=== PATIENT | female | born 1955 | race Caucasian/White ===

== ENCOUNTER → 2020-10-16 | Outpatient (CLI) | payer BC | END | disposition home or self-care (01) | LOC: LABWHC1 15:53 | PROVIDERS: ATTEND Internal Medicine | DX: Z20.828 Contact with and (suspected) exposure to other viral communicable diseases (principal) | CPT/HCPCS: U0003; C9803 ==

== ENCOUNTER 2021-07-30 21:22 | Observation (INO) | payer BC ==
[2021-07-30] MEDS ORDERED: HYDROmorphone 0.5 MG/0.5 ML SYRINGE IVP STA (22:36)
[2021-07-30] MEDS ORDERED: HYDROmorphone 0.5 MG/0.5 ML SYRINGE IM STA (22:36)
--- NOTE | 2021-07-30 22:57 | XR ---
EXAMINATION TYPE: XR foot limited RT DATE OF EXAM: 07/30/2021 COMPARISON: NONE HISTORY: Foot injury. Pain. TECHNIQUE: 2 views FINDINGS: Metatarsals are intact. The toes appear intact. There is small Achilles calcaneal spur. I s ee no fracture nor dislocation. There is minor spurring at the navicular cuneiform joints. IMPRESSION: Mild degenerative changes. No fracture.
--- NOTE | 2021-07-30 22:59 | XR ---
EXAMINATION TYPE: XR ankle limited RT DATE OF EXAM: 07/30/2021 COMPARISON: None HISTORY: Pain TECHNIQUE: 2 views FINDINGS: There is a trimalleolar fracture of the ankle. There is approximate 1.8 cm lateral displace ment of the talus. There is Achilles calcaneal spur. There is some soft tissue swelling around the an kle. IMPRESSION: Trimalleolar fracture of the ankle with comminuted fibula fragment and partial lateral di slocation of the talus.
--- NOTE | 2021-07-30 23:03 | ED ---
Lower Extremity Injury HPI - General Source: patient, EMS Mode of arrival: EMS Limitations: no limitations <Eber Tony - Last Filed: 07/31/21 01:13> <Prince Urbina - Last Filed: 08/04/21 23:25> - General Chief Complaint: Extremity Injury, Lower Stated Complaint: Fall, right ankle injury Time Seen by Provider: 07/30/21 21:49 - History of Present Illness Initial Comments: 66-year-old female presents to emergency Department with a chief complaint of right ankle injury. Patient reports her left leg slipped and caused her right leg to get stuck under her Neck. Patient reports she felt a sudden onset of p ain at the right ankle with a popping sensation. States she then contacted EMS who brought her to the ED for evaluation. Patient reports any pain with movement palpation or weightbearing. She reports diffuse swelling in the leg but denies any ecchymosis. Patient was given 100 g of fentanyl in the ambulance. Patient reports the pain is a lot more manageable now. She denies any paresthesias. (Eber Tony) - Related Data Home Medications Medication Instructions Recorded Confirmed ALPRAZolam [Xanax] 0.25 mg PO BID PRN 07/30/21 07/30/21 Aspirin 81 mg PO DAILY 07/30/21 07/30/21 Citalopram Hydrobromide [CeleXA] 20 mg PO DAILY 07/30/21 07/30/21 Metoprolol Tartrate [Lopressor] 25 mg PO BID 07/30/21 07/30/21 Previous Rx's Medication Instructions Recorded Baclofen 10 mg PO TID PRN #60 tab 07/31/21 Sennosides-Docusate Sodium 1 tab PO BID #60 tablet 07/31/21 [Senokot-S] Enoxaparin [Lovenox] 40 mg SQ DAILY #7 each 08/03/21 Famotidine [Pepcid] 20 mg PO DAILY tab 08/03/21 traMADol HCL [Ultram] 50 mg PO Q6HR PRN #28 tab 08/03/21 Allergies Allergy/AdvReac Type Severity Reaction Status Date / Time No Known Allergies Allergy Verified 07/30/21 22:13 Review of Systems ROS Other: All systems not noted in ROS Statement are negative. <Eber Tony - Last Filed: 07/31/21 01:13> ROS Other: All systems not noted in ROS Statement are negative. <Prince Urbina - Last Filed: 08/04/21 23:25> ROS Statement: Those systems with pertinent positive or pertinent negative responses have been documented in the HPI. Past Medical History Past Medical History: Chest Pain / Angina, Hyperlipidemia, Hypertension, Myocardial Infarction (CT) Additional Past Medical History / Comment(s): PSORIASIS, HEART MURMUR. Last Myocardial Infarction Date:: 06/21/14 History of Any Multi-Drug Resistant Organisms: None Reported Past Surgical History: Coronary Bypass/CABG, Heart Catheterization With Stent Past Anesthesia/Blood Transfusion Reactions: No Reported Reaction Additional Past Anesthesia/Blood Transfusion Reaction / Comment(s): PT ADOPTED-NO FAMILY HX KNOWN. , PT STATES SHE HAS NO HX OF ANESTHESIA. Date of Last Stent Placement:: 06/21/2014 Past Psychological History: No Psychological Hx Reported Smoking Status: Former smoker Past Alcohol Use History: None Reported Past Drug Use History: None Reported - Past Family History Mother Additional Family Medical History / Comment(s): PT ADOPTED- NO KNOWN FAMILY HX. <Eber Tony - Last Filed: 07/31/21 01:13> General Exam Limitations: no limitations General appearance: alert, in no apparent distress, obese Head exam: Present: atraumatic, normocephalic, normal inspection Eye exam: Present: normal appearance, PERRL, EOMI Pupils: Present: normal accommodation ENT exam: Present: normal exam, normal oropharynx, mucous membranes moist Neck exam: Present: normal inspection, full ROM. Absent: tenderness, lymphadenopathy Respiratory exam: Present: normal lung sounds bilaterally. Absent: respiratory distress, wheezes, rales, rhonchi, stridor Cardiovascular Exam: Present: regular rate, normal rhythm, normal heart sounds. Absent: systolic murmur Extremities exam: Present: tenderness (Tenderness along the bilateral malleoli. No knee tenderness.), normal capillary refill, joint swelling (Right ankle), other (Palpable DP and PT bilaterally. Sensation intact in the right foot). Absent: normal inspection (Swelling diffusely along the right ankle), full ROM (Limited range of motion due to pain), pedal edema, calf tenderness Back exam: Present: normal inspection, full ROM. Absent: tenderness, CVA tenderness (R), CVA tenderness (L) Neurological exam: Present: alert, oriented X3 Psychiatric exam: Present: normal affect, normal mood Skin exam: Present: warm, dry, intact, normal color <Eber Tony - Last Filed: 07/31/21 01:13> Course Vital Signs 07/30/21 07/30/21 07/31/21 21:39 23:39 00:29 Temperature 97.7 F Pulse Rate 78 78 73 Pulse Rate [ Pulse Oximetery ] Respiratory 16 16 18 Rate Blood Pressure 189/75 174/85 164/79 Blood Pressure [Left Arm] O2 Sat by Pulse 88 L 95 100 Oximetry 07/31/21 07/31/21 07/31/21 00:35 00:40 00:45 Temperature Pulse Rate 73 79 74 Pulse Rate [ Pulse Oximetery ] Respiratory 15 16 14 Rate Blood Pressure 170/82 178/62 165/90 Blood Pressure [Left Arm] O2 Sat by Pulse 100 97 99 Oximetry 07/31/21 07/31/21 07/31/21 00:52 00:57 01:03 Temperature Pulse Rate 74 75 70 Pulse Rate [ Pulse Oximetery ] Respiratory 18 18 16 Rate Blood Pressure 164/75 175/77 136/75 Blood Pressure [Left Arm] O2 Sat by Pulse 97 94 L 94 L Oximetry 07/31/21 07/31/21 07/31/21 03:00 06:00 07:00 Temperature 98.2 F Pulse Rate 74 68 Pulse Rate [ 64 Pulse Oximetery ] Respiratory 16 16 19 Rate Blood Pressure 136/86 124/56 Blood Pressure 133/71 [Left Arm] O2 Sat by Pulse 95 97 91 L Oximetry Procedures - Orthopedic Splinting/Casting Injury #1 Side: right Upper Extremity Immobilizer: posterior splint, Kelvin wrap, synthetic pre-padded splint Lower Extremity Injury Location: ankle <Eber Tony Last Filed: 07/31/21 01:13> - Orthopedic Fracture Reduction Fracture #1 Consent Obtained: written consent Side: right Fracture Reduction Location: tibia, fibula Analgesia: procedural sedation Technique: direct manipulation Post Reduction X-rays Demonstrate: anatomical reduction Post-Reduction Neuro Exam: intact Post-Reduction Vascular Exam: intact Splint Applied: Yes Patient Tolerated Procedure: well, no complications - Procedural Sedation Procedural Sedation Start Time: 00:29 Procedural Sedation Stop Time: 00:48 Indications: fracture/dislocation reduction ASA Class: II Mallampati Airway Score: 4 Preparation: monitor worker applied, pulse oximeter, capnometry used, supplemental O2 applied, IV secured IV Propofol Dose (mgs): 50 Complications: none Patient Tolerated Procedure: well, no complications <Prince Urbina - Last Filed: 08/04/21 23:25> Medical Decision Making <Eber Tony - Last Filed: 07/31/21 01:13> - Lab Data Result diagrams: 08/02/21 06:06 08/02/21 06:06 <Prince Urbina - Last Filed: 08/04/21 23:25> - Medical Decision Making 66-year-old female presents to emergency Department with a chief complaint of right ankle injury. On physical examination, she has tenderness and limited range of motion with swelling to the right ankle. She is neurovascularly intact. X-ray reveals Trimalleolar fracture with talotibial dislocation. Patient was given 100 g of fentanyl in the ambulance. She received an additional doses of Dilaudid in the emergency department. I spoke to Dr. Pascual who recommended reduction and posterior splint. He recommended admission with a consult internal medicine. The reduction was performed in conjunction with Dr. Cavanaugh. Post reduction x-rays reveal satisfactory reduction. Patient will be admitted for further medical management. (Eber Tony) I saw this patient in conjunction with the physician commissary assistant. I performed independent history and physical exam. Agree with case management. (Prince Urbina) Disposition Is patient prescribed a controlled substance at d/c from ED?: No Time of Disposition: 01:15 <Eber Tony - Last Filed: 07/31/21 01:13> <Prince Urbina - Last Filed: 08/04/21 23:25> Clinical Impression: Trimalleolar fracture of ankle, closed Disposition: ADMITTED IP TO THIS HOSP Condition: Fair
[2021-07-30] MEDS ORDERED: PROPOFOL 10 MG/ML 20 ML VIAL IV ONE (23:19)
[2021-07-31] MEDS ORDERED: HYDROmorphone 0.5 MG/0.5 ML SYRINGE IVP STA (00:50)
--- NOTE | 2021-07-31 01:01 | XR ---
EXAMINATION TYPE: XR ankle limited RT DATE OF EXAM: 07/31/2021 COMPARISON: Yesterday HISTORY: Post reduction TECHNIQUE: 2 views FINDINGS: There is trimalleolar fracture of the ankle. There is 1.5 x 0.7 cm chip fracture posterior malleolus. The talus is in fairly good position. There is soft tissue swelling. There is no significa nt displacement of the medial and lateral malleolus fragments. IMPRESSION: There is good anatomic reduction of the trimalleolar fracture of the right ankle compared to initial exam. No complicating process seen.
[2021-07-31] MEDS ORDERED: ONDANSETRON 4 MG/2 ML VIAL IVP PRN (01:11)
[2021-07-31] MEDS ORDERED: NALOXONE 0.4 MG/ML 1 ML VIAL IV PRN (01:11)
[2021-07-31] MEDS: HYDROmorphone 0.5 MG/0.5 ML SYRINGE IVP PRN ×6 (03:08→17:55)
[2021-07-31] MEDS: SODIUM CHLORIDE 0.9% 1,000 ML IV SCH ×2 (03:09→17:31)
[2021-07-31] MEDS: CITALOPRAM HYDROBROMIDE 20 MG TAB PO SCH (09:27)
[2021-07-31] MEDS: METOPROLOL TARTRATE 25 MG TAB PO SCH ×2 (09:27→20:25)
[2021-07-31] MEDS ORDERED: DIAZEPAM 5 MG/ML 2 ML INJ IVP STA (12:18)
[2021-07-31] MEDS: traMADol 50 MG TAB PO PRN ×2 (12:19→20:29)
[2021-07-31] MEDS: ENOXAPARIN 40 MG/0.4 ML SYRINGE SQ SCH (12:57)
[2021-07-31] MEDS ORDERED: traMADol 50 MG TAB PO SCH (13:00)
[2021-07-31 13:25] LABS: African American GFR (CKD) >90 (>60 ml/min/1.73 sqM); Anion Gap 4 mmol/L; Blood Urea Nitrogen 17 mg/dL (7-17); Calcium 8.9 mg/dL (8.4-10.2); Carbon Dioxide 27 mmol/L (22-30); Chloride 103 mmol/L (98-107); Glucose 123 mg/dL (74-99); Non-African American GFR(CKD) 78 (>60 ml/min/1.73 sqM); Potassium 4.3 mmol/L (3.5-5.1); Sodium 134 mmol/L (137-145)
[2021-07-31 13:32] LABS: Basophils % (A) 0 %; Eosinophils # (A) 0.1 k/uL (0-0.7); Eosinophils % (A) 1 %; HGB 13.2 gm/dL (11.4-16.0); Lymphocytes # (A) 1.3 k/uL (1.0-4.8); Lymphocytes % (A) 13 %; MCH 30.1 pg (25.0-35.0); MCHC 32.2 g/dL (31.0-37.0); MCV 93.4 fL (80.0-100.0); Mean Platelet Volume 7.3; Monocytes # (A) 0.4 k/uL (0-1.0); Monocytes % (A) 4 %; Neutrophils # (A) 8.1 k/uL (1.3-7.7); Neutrophils % (A) 81 %; Platelet Count 249 k/uL (150-450); RBC 4.39 m/uL (3.80-5.40)
--- NOTE | 2021-07-31 13:52 | P.HPOR ---
History of Present Illness H&P Date: 07/31/21 Chief Complaint: Right ankle fracture This is a 66-year-old female who fell in her home yesterday sustaining injury to her right ankle. She was seen in the emergency department and admitted to our service for pain management. She was found to have a trimalleolar fracture di slocation which was reduced in the emergency department. She was placed in a short leg splint. Past Medical History Past Medical History: Chest Pain / Angina, Hyperlipidemia, Hypertension, Myocardial Infarction (MD) Additional Past Medical History / Comment(s): PSORIASIS, HEART MURMUR. Last Myocardial Infarction Date:: 06/21/14 History of Any Multi-Drug Resistant Organisms: None Reported Past Surgical History: Coronary Bypass/CABG, Heart Catheterization With Stent Past Anesthesia/Blood Transfusion Reactions: No Reported Reaction Additional Past Anesthesia/Blood Transfusion Reaction / Comment(s): PT ADOPTED- NO FAMILY HX KNOWN. , PT STATES SHE HAS NO HX OF ANESTHESIA. Date of Last Stent Placement:: 06/21/2014 Past Psychological History: No Psychological Hx Reported Smoking Status: Former smoker Past Alcohol Use History: None Reported Past Drug Use History: None Reported - Past Family History Mother Additional Family Medical History / Comment(s): PT ADOPTED- NO KNOWN FAMILY HX. Medications and Allergies Home Medications Medication Instructions Recorded Confirmed Type Clopidogrel Bisulfate [Plavix] 75 mg PO DAILY #30 tab 06/25/14 07/30/21 Rx ALPRAZolam [Xanax] 0.25 mg PO BID PRN 07/30/21 07/30/21 History Aspirin 81 mg PO DAILY 07/30/21 07/30/21 History Citalopram Hydrobromide [CeleXA] 20 mg PO DAILY 07/30/21 07/30/21 History Metoprolol Tartrate [Lopressor] 25 mg PO BID 07/30/21 07/30/21 History Allergies Allergy/AdvReac Type Severity Reaction Status Date / Time No Known Allergies Allergy Verified 07/30/21 22:13 Physical Examination This is a pleasant 66-year-old female in no acute distress. She is alert and oriented 3. Her daughter is present at bedside. Exam of the right lower extremity reveals swelling to the ankle. Splint is removed. There are no open wounds or abrasions. She is having some Spasm at this time. Normal toe motion. Pedal pulse is +2/4. Neurovascular status to the lower extremity is intact. No other findings on orthopedic exam. Results X-rays reveal a trimalleolar fracture dislocation right ankle. Postreduction x-rays revealed satisfactory reduction. - Labs Labs: Abnormal Lab Results - Last 24 Hours (Table) 07/31/21 07/31/21 Range/Units 12:54 12:54 Neutrophils # 8.1 H (1.3-7.7) k/uL Sodium 134 L (137-145) mmol/L Glucose 123 H (74-99) mg/dL H & H 07/31/21 Range/Units 12:54 Hgb 13.2 (11.4-16.0) gm/dL Hct 41.0 (34.0-46.0) % Result Diagrams: 07/31/21 12:54 07/31/21 12:54 Assessment and Plan (1) Trimalleolar fracture of ankle, closed Current Visit: Yes Status: Acute Code(s): S82.853A - DISPLACED TRIMALLEOLAR FRACTURE OF UNSP LOWER LEG, INIT SNOMED Code(s): 5167826 Plan: The clinical and x-ray findings are discussed with the patient and her daughter. It is recommended she undergo open reduction showed fixation of the right ankle. It is discussed that with typically wait 7-10 days to allow swelling to resolve prior to taking the patient to surgery. She is placed in a well-padded bulky splint. I was unable to get her foot and ankle up to 90 but her position was improved. She may be discharged to home after physical therapy sees her. She is to be nonweightbearing right lower extremity. She is to follow-up in the office next week.
[2021-07-31] MEDS: BACLOFEN 10 MG TAB PO PRN (17:55)
--- NOTE | 2021-07-31 18:55 | P.CONS ---
History of Present Illness - Reason for Consult Consult date: 07/31/21 med management - History of Present Illness This is a pleasant 66-year-old female who presents to the after catching her foot underneath a dresser in her hallway which also resulted in a fall and trimalar fracture to the right. Replaced in consultation by orthopedic services for medication management. Patient does have a history of DC in 2013 with 2 stents, with subsequent open heart with repair to the mitral valve in 2013. Patient also has a history of hypertension, hyperlipidemia, psoriasis. She is a former smoker, there is no other history noted. Patient does continue on aspirin and Plavix. We are recommending that she hold Plavix at this time but can continue on baby aspirin. Vital signs remained stable, afebrile, heart rate sinus rhythm 64, blood pressure 130/71, 97% on room air. Patient's continue on her home dose of Celexa, Lopressor and is receiving hydration 0.75. Patient is currently pending evaluation from orthopedics. She is requesting an increase in pain management, tramadol has been ordered. We discussed a muscle relaxer, this will be discussed with orthopedics. Initial x-ray in the ER revealed a tri- malleolar fracture of the ankle with comminuted fibular fragment and partial lateral dislocation of the talus. This was reduced by the ER physician, and subsequent x-ray showed a good anatomic reduction of the trimalleolar fracture of the right ankle compared to initial exam. The patient was placed in a splint and admitted to the floor. Patient's chemistry panel is unremarkable, blood count within normal limits. Her sodium is 134 and glucose is 123. coronavirus in not detectable. Pt will be kept overnight for pain management. She will dc'd on lovenox daily for DVT prophylaxis, and will f/u with ortho outpt once swelling subsides. REVIEW OF SYSTEMS: CONSTITUTIONAL: No fever, no malaise, no fatigue. HEENT: No recent visual problems or hearing problems. Denied any sore throat. CARDIOVASCULAR: No chest pain, orthopnea, PND, no palpitations, no syncope. Reports increasing lower extremity edema PULMONARY: Denies Cough, Shortness of breath. GASTROINTESTINAL: No diarrhea, no nausea, no vomiting, no abdominal pain. NEUROLOGICAL: No headaches, no weakness, no numbness. HEMATOLOGICAL: Denies any bleeding or petechiae. GENITOURINARY: Denies any burning micturition, frequency, or urgency. MUSCULOSKELETAL/RHEUMATOLOGICAL: Reports 10/10 cramping and aching to her right calf and ankle unrelieved by pain meds, denies numbness/tingling ENDOCRINE: Denies any polyuria or polydipsia. The rest of the 14-point review of systems is negative. PHYSICAL EXAMINATION: GENERAL: The patient is alert and oriented x3, not in any acute distress. Well developed, well nourished. HEENT: Pupils are round and equally reacting to light. EOMI. No scleral icterus. No conjunctival pallor. Normocephalic, atraumatic. No pharyngeal erythema. No thyromegaly. CARDIOVASCULAR: S1 and S2 present. Patient has regular rate and rhythm, there are no murmurs. PULMONARY: Clear to auscultation, no wheezes, crackles, rhonchi noted. ABDOMEN: Soft, nontender, nondistended, normoactive bowel sounds. No palpable organomegaly. MUSCULOSKELETAL: No joint swelling or deformity. EXTREMITIES: No cyanosis, clubbing. +2 dorsalis pedis bilateral NEUROLOGICAL: Gross neurological examination did not reveal any focal deficits. SKIN: No rashes. Kelvin Wrap to RLE. Assessment and Plan Assessment Closed Trimalleolar fracture of the right ankle s/p reduction and splint hyponatremia due to hyperglycemia, repeat in the morning hyperglycemia, no history of diabetes mellitus, f/u outpatient Coronary artery disease s/p PCI in 2013, plavix o/h history of mitral valve repair, open heart in 2013 hypertension - cont on metoprolol obesity Full Code DVT prophylaxis - Lovenox GI prophylaxis - Pepcid Plan: Pt to be discharged home from orthopedics once cleared. Cont all current medications, plavix will remain on/hold. Repeat labs in the morning, continue with IV fluids. Pt will f/u outpatient next week with Dr Reed office. Cont pain management. We will follow along. Thank you kindly for this consultation. Past Medical History Past Medical History: Chest Pain / Angina, Hyperlipidemia, Hypertension, Myocardial Infarction (DC) Additional Past Medical History / Comment(s): PSORIASIS, HEART MURMUR. Last Myocardial Infarction Date:: 06/21/14 History of Any Multi-Drug Resistant Organisms: None Reported Past Surgical History: Coronary Bypass/CABG, Heart Catheterization With Stent Past Anesthesia/Blood Transfusion Reactions: No Reported Reaction Additional Past Anesthesia/Blood Transfusion Reaction / Comm: PT ADOPTED-NO FAMILY HX KNOWN. , PT STATES SHE HAS NO HX OF ANESTHESIA. Date of Last Stent Placement:: 06/21/2014 Past Psychological History: No Psychological Hx Reported Smoking Status: Former smoker Past Alcohol Use History: None Reported Past Drug Use History: None Reported - Past Family History Mother Additional Family Medical History / Comment(s): PT ADOPTED- NO KNOWN FAMILY HX. Medications and Allergies Home Medications Medication Instructions Recorded Confirmed Type Clopidogrel Bisulfate [Plavix] 75 mg PO DAILY #30 tab 06/25/14 07/30/21 Rx ALPRAZolam [Xanax] 0.25 mg PO BID PRN 07/30/21 07/30/21 History Aspirin 81 mg PO DAILY 07/30/21 07/30/21 History Citalopram Hydrobromide [CeleXA] 20 mg PO DAILY 07/30/21 07/30/21 History Metoprolol Tartrate [Lopressor] 25 mg PO BID 07/30/21 07/30/21 History Baclofen 10 mg PO TID PRN #60 tab 07/31/21 Rx HYDROcodone/APAP 7.5-325MG [[place] 1 - 2 tab PO Q6HR PRN #32 tab 07/31/21 Rx 7.5-325] Sennosides-Docusate Sodium 1 tab PO BID #60 tablet 07/31/21 Rx [Senokot-S] Allergies Allergy/AdvReac Type Severity Reaction Status Date / Time No Known Allergies Allergy Verified 07/30/21 22:13 Physical Exam Vitals: Vital Signs Temp Pulse Pulse Resp BP BP Pulse Ox 07/31/21 07:00 98.2 F 64 19 133/71 91 L 07/31/21 06:00 68 16 124/56 97 07/31/21 03:00 74 16 136/86 95 07/31/21 01:03 70 16 136/75 94 L 07/31/21 00:57 75 18 175/77 94 L 07/31/21 00:52 74 18 164/75 97 07/31/21 00:45 74 14 165/90 99 07/31/21 00:40 79 16 178/62 97 07/31/21 00:35 73 15 170/82 100 07/31/21 00:29 73 18 164/79 100 07/30/21 23:39 78 16 174/85 95 07/30/21 21:39 97.7 F 78 16 189/75 88 L Intake and Output 07/30/21 07/31/21 07/31/21 22:59 06:59 14:59 Other: Weight 108.862 kg 108.862 kg Results CBC & Chem 7: 07/31/21 12:54 07/31/21 12:54
[2021-08-01] MEDS: HYDROmorphone 0.5 MG/0.5 ML SYRINGE IVP PRN ×3 (00:41→19:12)
[2021-08-01] MEDS: SODIUM CHLORIDE 0.9% 1,000 ML IV SCH ×2 (04:51→19:13)
[2021-08-01] MEDS: ASPIRIN 81 MG PO SCH (07:43)
[2021-08-01] MEDS: METOPROLOL TARTRATE 25 MG TAB PO SCH ×2 (07:43→21:01)
[2021-08-01] MEDS: CITALOPRAM HYDROBROMIDE 20 MG TAB PO SCH (07:43)
[2021-08-01] MEDS: FAMOTIDINE 20 MG TAB PO SCH (07:43)
[2021-08-01] MEDS: BACLOFEN 10 MG TAB PO PRN ×2 (07:43→14:32)
[2021-08-01] MEDS: ENOXAPARIN 40 MG/0.4 ML SYRINGE SQ SCH (07:44)
--- NOTE | 2021-08-01 12:59 | P.PN ---
Subjective Progress Note Date: 08/01/21 Principal diagnosis: Trimalleolar fracture dislocation right ankle. This is a 66-year-old female who fell in her home yesterday sustaining injury to her right ankle. She was seen in the emergency department and admitted to our service for pain management. She was found to have a trimalleolar fracture dislocation which was reduced in the emergency department. She was placed in a short leg splint. She had reapplication of a well-padded bulky splint on 07/31/2021. She cont inues to have pain and difficulty with ambulation. She has no new complaints or concerns today. Vital signs are stable. Objective - Vital Signs Vital signs: Vital Signs Temp 98.7 F 08/01/21 07:00 Pulse 65 08/01/21 07:00 Resp 16 08/01/21 07:00 BP 129/72 08/01/21 07:00 Pulse Ox 91 L 08/01/21 07:00 Intake & Output 07/31/21 08/01/21 08/01/21 18:59 06:59 18:59 Intake Total 417 700 Output Total 800 Balance 417 -100 Intake: Oral 417 700 Output: Urine 800 Other: Voiding Method External Catheter # Voids 2 1 - Exam This is a pleasant 66-year-old female in no acute distress. She is alert and oriented 3. Exam of the right lower extremity reveals that her splint is clean, dry and intact. She has full toe motion without difficulty or pain. Neurovascular status to the lower extremity is intact. - Labs CBC & Chem 7: 07/31/21 12:54 07/31/21 12:54 Labs: Abnormal Lab Results - Last 24 Hours (Table) 07/31/21 07/31/21 Range/Units 12:54 12:54 Neutrophils # 8.1 H (1.3-7.7) k/uL Sodium 134 L (137-145) mmol/L Glucose 123 H (74-99) mg/dL Assessment and Plan (1) Trimalleolar fracture of ankle, closed Current Visit: Yes Status: Acute Code(s): S82.853A - DISPLACED TRIMALLEOLAR FRACTURE OF UNSP LOWER LEG, INIT SNOMED Code(s): 6615305 Plan: The clinical findings are discussed the patient. She may be discharged to home when better able to ambulate. We are just pain surgery within the next 7-10 days once swelling resolves a bit. Continue current care.
[2021-08-01] MEDS: traMADol 50 MG TAB PO PRN (14:32)
[2021-08-01 14:54] LABS: African American GFR (CKD) 78.3 (60.0-200.0); Anion Gap 12.5 mmol/L (4.00-12.00); BUN/Creat Ratio 22.22 Ratio (12.00-20.00); Calcium 8.3 mg/dL (8.7-10.3); Carbon Dioxide 21.5 mmol/L (21.6-31.8); Non-African American GFR(CKD) 67.6 (60.0-200.0); Potassium 4.4 mmol/L (3.5-5.5)
--- NOTE | 2021-08-01 20:52 | CONS ---
CONSULTATION DATE OF SERVICE: 08/01/2021. REASON FOR CONSULTATION: Advice regarding hypertension, hyperlipidemia, medication, requested by Orthopedic Surgery. HISTORY OF PRESENT ILLNESS: This 66-year-old woman with a past medical history of hypertension, hyperlipidemia, history of myocardial infarction, psoriasis, history of heart murmur, history of CAD and stent, being followed by Dr. Prado in the outpatient setting, apparently fell at home, tripping and sliding. The patient had a trimalleolar fracture and dislocation of the right ankle. There is no history of any fever, rigors or chills. No history of headache, loss of consciousness, seizures. Orthopedics has seen the patient and recommended pain management and surgery within the next 7 to 10 days. PAST MEDICAL HISTORY: Hypertension, hyperlipidemia, history of myocardial infarction, history of psoriasis, heart murmur, CAD, CABG, stent. HOME MEDICATIONS: Celexa, aspirin, Xanax, Lopressor, Plavix, Senokot-S, [place], baclofen. ALLERGIES: NONE. FAMILY HISTORY: No history of heart disease or strokes in the family. SOCIAL HISTORY: Previous history of smoking. No current smoking or alcohol intake. REVIEW OF SYSTEMS: ENT: No diminished hearing. No diminished vision. CARDIOVASCULAR SYSTEM: No angina, palpitations. RESPIRATORY SYSTEM: No cough, hemoptysis. GI: No nausea, vomiting, diarrhea. : No dysuria. NERVOUS SYSTEM: No numbness, weakness. ALLERGY/IMMUNOLOGY: No asthma or hay fever. MUSCULOSKELETAL: As mentioned earlier. HEMATOLOGY/ONCOLOGY: No history of anemia. ENDOCRINE: No history of diabetes or hypothyroidism. CONSTITUTIONAL: As mentioned earlier. DERMATOLOGY: As mentioned earlier. RHEUMATOLOGY: Negative. PSYCHIATRY: As mentioned earlier. PHYSICAL EXAMINATION: Patient alert and oriented x3. Pulse is 65, blood pressure 129/72, respirations 16, temperature 98.7, pulse ox 91% on room air. HEENT: Conjunctivae normal. NECK: No jugular venous distention. CARDIOVASCULAR: S1, S2 muffled. RESPIRATION: Breath sounds diminished at the bases. No rhonchi. No crackles. ABDOMEN: Soft, obese, non-tender. No mass palpable. LEGS: Status post right ankle fracture. NERVOUS SYSTEM: Higher functions as mentioned earlier. Moves all 4 limbs. No focal motor or sensory deficit. LYMPHATICS: No lymph node palpable in neck, axillae or groin. SKIN: No ulcer, rash, bleeding. JOINTS: No active deforming arthropathy. LABS: CBC within normal limits. Sodium is 134 and 138. Otherwise glucose 116. ASSESSMENT: 1. Status post fall and right ankle trimalleolar fracture and dislocation. 2. Hyponatremia, mild. 3. History of hypertension. 4. Hyperlipidemia. 5. History of myocardial infarction. 6. History of psoriasis. 7. History of heart murmur. 8. History of coronary artery disease, coronary artery bypass grafting, stent. 9. Obesity with body mass index of 39.9. 10.FULL CODE. RECOMMENDATIONS AND DISCUSSION: In this 66-year-old woman who presented with multiple complex medical issues, at this time I recommend to continue current medications, resume the home medication, continue with the beta blockers. Otherwise, the patient is cleared for surgery. Patient is currently stable. Incentive spirometry. DVT prophylaxis. Further recommendations to follow. Recommend close followup with Dr. Prado after discharge. Plavix has been stopped currently. MMODL / IJN: [id number] /
[2021-08-02] MEDS: HYDROmorphone 0.5 MG/0.5 ML SYRINGE IVP PRN ×4 (02:23→21:26)
[2021-08-02] MEDS: SODIUM CHLORIDE 0.9% 1,000 ML IV SCH ×2 (06:12→20:03)
[2021-08-02] MEDS: ENOXAPARIN 40 MG/0.4 ML SYRINGE SQ SCH (08:20)
[2021-08-02] MEDS: FAMOTIDINE 20 MG TAB PO SCH (08:20)
[2021-08-02] MEDS: METOPROLOL TARTRATE 25 MG TAB PO SCH ×2 (08:20→20:00)
[2021-08-02] MEDS: ASPIRIN 81 MG PO SCH (08:20)
[2021-08-02] MEDS: CITALOPRAM HYDROBROMIDE 20 MG TAB PO SCH (08:20)
[2021-08-02 09:03] LABS: Basophils # (A) 0.05 X 10*3/uL (0.00-0.10); Basophils % (A) 0.5 %; Eosinophils # (A) 0.23 X 10*3/uL (0.04-0.35); Eosinophils % (A) 2.4 %; HCT 35.9 % (37.2-46.3); HGB 11.4 g/dL (12.0-15.0); Lymphocytes # (A) 1.93 X 10*3/uL (0.90-5.00); Lymphocytes % (A) 20.4 %; MCH 29.7 pg (27.0-32.0); MCHC 31.8 g/dL (32.0-37.0); MCV 93.5 fL (80.0-97.0); Mean Platelet Volume 9.8 fL (9.5-12.2); Monocytes # (A) 0.68 X 10*3/uL (0.20-1.00); Monocytes % (A) 7.2 %; Neutrophils # (A) 6.54 X 10*3/uL (1.80-7.70); Platelet Count 214 X 10*3/uL (140-440); RBC 3.84 X 10*6/uL (4.10-5.20); RDW 13.2 % (11.5-14.5); WBC 9.48 X 10*3/uL (4.50-10.00)
[2021-08-02 09:16] LABS: African American GFR (CKD) 78.3 (60.0-200.0); Anion Gap 1.8 mmol/L (4.00-12.00); BUN/Creat Ratio 16.67 Ratio (12.00-20.00); Calcium 8.6 mg/dL (8.7-10.3); Carbon Dioxide 29.2 mmol/L (21.6-31.8); Non-African American GFR(CKD) 67.6 (60.0-200.0); Potassium 4.2 mmol/L (3.5-5.5)
--- NOTE | 2021-08-02 13:01 | P.PN ---
Subjective Progress Note Date: 08/02/21 Principal diagnosis: Trimalleolar fracture dislocation right ankle. This is a 66-year-old female who fell in her home yesterday sustaining injury to her right ankle. She was seen in the emergency department and admitted to our service for pain management. She was found to have a trimalleolar fracture dislocation which was reduced in the emergency department. She was placed in a short leg splint. She had reapplication of a well-padded bulky splint on 07/31/2021. She cont inues to have pain and difficulty with ambulation. She has no new complaints or concerns today. Vital signs are stable. Objective - Vital Signs Vital signs: Vital Signs Temp 98.4 F 08/02/21 01:47 Pulse 98 08/02/21 07:00 Resp 17 08/02/21 07:00 BP 145/55 08/02/21 07:00 Pulse Ox 92 L 08/02/21 07:00 Intake & Output 08/01/21 08/02/21 08/02/21 18:59 06:59 18:59 Intake Total 450 900 Output Total 600 Balance 450 300 Intake: Intake, IV Titration 450 900 Amount Sodium Chloride 0.9% 1, 450 900 000 ml @ 75 mls/hr IV . [id number] [facility] Rx#:[id number] Output: Urine 600 Other: Voiding Method Bedside Commode Bedside Commode # Voids 2 - Exam This is a pleasant 66-year-old female in no acute distress. She is alert and oriented 3. Exam of the right lower extremity reveals that her splint is clean, dry and intact. She has full toe motion without difficulty or pain. Neurovascular status to the lower extremity is intact. - Labs CBC & Chem 7: 08/02/21 06:06 08/02/21 06:06 Labs: Abnormal Lab Results - Last 24 Hours (Table) 08/01/21 08/02/21 08/02/21 Range/Units 06:30 06:06 06:06 RBC 3.84 L (4.10-5.20) X 10*6/uL Hgb 11.4 L (12.0-15.0) g/dL Hct 35.9 L (37.2-46.3) % MCHC 31.8 L (32.0-37.0) g/dL Immature Gran # 0.05 H (0.00-0.04) X 10*3/uL Carbon Dioxide 21.5 L (21.6-31.8) mmol/L Anion Gap 12.50 H 1.80 L (4.00-12.00) mmol/L BUN/Creatinine Ratio 22.22 H (12.00-20.00) Ratio Glucose 116 H (70-110) mg/dL Calcium 8.3 L 8.6 L (8.7-10.3) mg/dL Assessment and Plan (1) Trimalleolar fracture of ankle, closed Current Visit: Yes Status: Acute Code(s): S82.853A - DISPLACED TRIMALLEOLAR FRACTURE OF UNSP LOWER LEG, INIT SNOMED Code(s): 1989564 Plan: The clinical findings are discussed the patient. She may be discharged to home when better able to ambulate. We are just pain surgery within the next 7-10 days once swelling resolves a bit. Continue current care.
[2021-08-02] MEDS: traMADol 50 MG TAB PO PRN ×2 (13:30→20:01)
--- NOTE | 2021-08-02 19:59 | PN ---
PROGRESS NOTE DATE OF SERVICE: 08/02/2021 This 66-year-old woman was admitted with ankle fracture, is being closely monitored at this time. The patient is on a cast, delayed surgery, surgery planned by Orthopedic surgery. Plavix is on hold. No chest pain. No palpitations. No fever. The community mental health social worker is recommended to evaluate the home situation, arrange things at home. No chest pain. No palpitations. No fever. PHYSICAL EXAMINATION: Alert and oriented x3. Pulse 65, blood pressure 134/70, respiration 18, temperature 98.7, pulse ox 98% on room air. HEENT: Conjunctivae normal. Oral mucosa moist. NECK: No jugular venous distention. No lymph node enlargement. CARDIOVASCULAR: S1, S2, muffled. No S3, no S4, RESPIRATORY: Diminished breath sounds at the bases. ABDOMEN: Soft, nontender. LEGS: Status post left ankle fracture. NERVOUS SYSTEM: No focal deficits. LABS: Hemoglobin 11.4. Creatinine is currently 0.9. COVID-19 is negative. ASSESSMENT: 1. Status post fall and right ankle trimalleolar fracture with dislocation. 2. Hyponatremia, mild. 3. History of hypertension. 4. History of hyperlipidemia. 5. History of myocardial infarction. 6. History of psoriasis. 7. History of heart murmur. 8. History of CAD, CABG, stent. 9. Obesity with body mass index of 39.9. 10.FULL CODE. RECOMMENDATIONS: Recommend to continue current management and symptomatic treatment. Otherwise, at this time continue to monitor pain management, DVT prophylaxis. Closely follow with Orthopedic Surgery. Further recommendations to follow. MMODL / IJN: [id number] /
[2021-08-03] MEDS: HYDROmorphone 0.5 MG/0.5 ML SYRINGE IVP PRN ×2 (00:22→04:56)
[2021-08-03] MEDS: traMADol 50 MG TAB PO PRN (01:58)
[2021-08-03 02:02] VITALS: PULSE 64
[2021-08-03 08:22] VITALS: BP 124/58; RESP 16; TEMP 98.2
[2021-08-03] MEDS: METOPROLOL TARTRATE 25 MG TAB PO SCH (08:23)
[2021-08-03] MEDS: ENOXAPARIN 40 MG/0.4 ML SYRINGE SQ SCH (08:23)
[2021-08-03] MEDS: FAMOTIDINE 20 MG TAB PO SCH (08:23)
[2021-08-03] MEDS: SODIUM CHLORIDE 0.9% 1,000 ML IV SCH (08:23)
[2021-08-03] MEDS: CITALOPRAM HYDROBROMIDE 20 MG TAB PO SCH (08:23)
[2021-08-03] MEDS: ASPIRIN 81 MG PO SCH (08:23)
--- NOTE | 2021-08-03 08:25 | P.DS ---
Providers Date of admission: 07/31/21 01:23 Expected date of discharge: 08/03/21 Attending physician: James Pascual Consults: 07/31/21 01:11 Consult Physician Routine Consulting Provider: Anthony Foreman Consult Reason/Comments: Trimalleolar fracture with talotibial dislocation Do you want consulting provider notified?: Yes Primary care physician: Lydia Prado - Discharge Diagnosis(es) (1) Trimalleolar fracture of ankle, closed Current Visit: Yes Status: Acute Hospital Course: This is a 66-year-old female who fell in her home sustaining injury to her right ankle. She was seen in the emergency department and admitted to our service for pain management. She was found to have a trimalleolar fracture dislocation which was reduced in the emergency department. She was placed in a short leg splint. The ankle was evaluated and she was found to have significant swelling. A new well-padded splint was applied. The patient remained inpatient for pain control and physical therapy. She is discharged to home on 08/03/2021. She is to follow-up tomorrow or for reevaluation and to schedule surgery. Patient Condition at Discharge: Fair Plan - Discharge Summary Discharge Rx Participant: No New Discharge Prescriptions: New traMADol HCL [Ultram] 50 mg PO Q6HR PRN #28 tab PRN Reason: Pain Baclofen 10 mg PO TID PRN #60 tab PRN Reason: Spasms Sennosides-Docusate Sodium [Senokot-S] 1 tab PO BID #60 tablet No Action Clopidogrel Bisulfate [Plavix] 75 mg PO DAILY #30 tab Aspirin 81 mg PO DAILY ALPRAZolam [Xanax] 0.25 mg PO BID PRN PRN Reason: Anxiety Metoprolol Tartrate [Lopressor] 25 mg PO BID Citalopram Hydrobromide [CeleXA] 20 mg PO DAILY Discharge Medication List Clopidogrel Bisulfate [Plavix] 75 mg PO DAILY #30 tab 06/25/14 [Rx] ALPRAZolam [Xanax] 0.25 mg PO BID PRN 07/30/21 [History] Aspirin 81 mg PO DAILY 07/30/21 [History] Citalopram Hydrobromide [CeleXA] 20 mg PO DAILY 07/30/21 [History] Metoprolol Tartrate [Lopressor] 25 mg PO BID 07/30/21 [History] Baclofen 10 mg PO TID PRN #60 tab 07/31/21 [Rx] Sennosides-Docusate Sodium [Senokot-S] 1 tab PO BID #60 tablet 07/31/21 [Rx] traMADol HCL [Ultram] 50 mg PO Q6HR PRN #28 tab 08/03/21 [Rx] Follow up Appointment(s)/Referral(s): James Pascual MD [STAFF PHYSICIAN] - 3 Days Lydia Prado MD [Primary Care Provider] - 1-2 days Activity/Diet/Wound Care/Special Instructions: Keep splint intact. Nonweightbearing right lower extremity with walker. Follow-up with Dr. Pascual on 08/04/2021. Discharge Disposition: HOME SELF-CARE
--- NOTE | 2021-08-03 09:16 | P.PN ---
Progress Note - Text Progress Note Date: 08/03/21 The patient will require a wheelchair at discharged to complete her ADLs. She has pain, weakness and is nonweightbearing to the right lower extremity. She will be able to propel herself in the wheelchair. She will also require a commode chair because she will be room confined. Planning discharge to home today.
--- NOTE | 2021-08-03 13:32 | P.PN ---
Subjective Progress Note Date: 08/03/21 This is a pleasant 66-year-old female who presents to the after catching her foot underneath a dresser in her hallway which also resulted in a fall and trimalar fracture to the right. Replaced in consultation by orthopedic services for medication management. Patient does have a history of MA in 2013 with 2 stents, with subsequent open heart with repair to the mitral valve in 2013. Patient also has a history of hypertension, hyperlipidemia, psoriasis. She is a former smoker, there is no other history noted. Patient does continue on aspirin and Plavix. We are recommending that she hold Plavix at this time but can continue on baby aspirin. Vital signs remained stable, afebrile, heart rate sinus rhythm 64, blood pressure 130/71, 97% on room air. Patient's continue on her home dose of Celexa, Lopressor and is receiving hydration 0.75. Patient is currently pending evaluation from orthopedics. She is requesting an increase in pain management, tramadol has been ordered. We discussed a muscle relaxer, this will be discussed with orthopedics. Initial x-ray in the ER revealed a tri-mall eolar fracture of the ankle with comminuted fibular fragment and partial lateral dislocation of the talus. This was reduced by the ER physician, and subsequent x-ray showed a good anatomic reduction of the trimalleolar fracture of the right ankle compared to initial exam. The patient was placed in a splint and admitted to the floor. Patient's chemistry panel is unremarkable, blood count within normal limits. Her sodium is 134 and glucose is 123. coronavirus in not detectable. Pt will be kept overnight for pain management. She will dc'd on lovenox daily for DVT prophylaxis, and will f/u with ortho outpt once swelling subsides. 08/03/2021 Patient is followed closely by medical service of his admission. Patient is stable for surgery from a medical standpoint. She is alert and oriented 3, denies any chest pain, chest pressure, cough or shortness of breath. She denies any headache, dizziness, lightheadedness. She denies any nausea vomiting or diarrhea, she is tolerating diet. Her focal neurological Exam is negative. She remains a surgical splint to her right, and plans to follow-up with Dr. Pascual in the office tomorrow to plan for surgical intervention. Patient will have a wheelchair for discharge. Patient is currently nonweightbearing. Vital signs are stable 98 which afebrile, heart rate 64 sinus rhythm, BP 124/58. Patient is receiving tramadol for pain management. ROS Constitutional: Denied any fatigue denied any fever. Cardio vascular: denied any chest pain, palpitations Gastrointestinal denied any nausea vomiting Pulmonary: Denied any shortness of breath cough Neurologic denied any new focal deficits All inpatient medications were reviewed and appropriate changes in these medications as dictated in the interval history and assessment and plan. PHYSICAL EXAMINATION: GENERAL: The patient is alert and oriented x3, not in any acute distress. Well developed, well nourished. HEENT: Pupils are round and equally reacting to light. EOMI. No scleral icterus. No conjunctival pallor. Normocephalic, atraumatic. No pharyngeal erythema. No thyromegaly. CARDIOVASCULAR: S1 and S2 present. No murmurs, rubs, or gallops. PULMONARY: Chest is clear to auscultation, no wheezing or crackles. ABDOMEN: Soft, nontender, nondistended, normoactive bowel sounds. No palpable organomegaly. MUSCULOSKELETAL: No joint swelling or deformity. EXTREMITIES: No cyanosis, clubbing, or pedal edema. NEUROLOGICAL: Gross neurological examination did not reveal any focal deficits. SKIN: No rashes. Assessment and Plan Assessment Closed Trimalleolar fracture of the right ankle s/p reduction and splint hyponatremia, repleted hyperglycemia, no history of diabetes mellitus, f/u outpatient, 96 today Coronary artery disease s/p PCI in 2013, plavix o/h history of mitral valve repair, open heart in 2013 hypertension - cont on metoprolol obesity Full Code DVT prophylaxis - Lovenox GI prophylaxis - Pepcid Plan Patient will be discharged today from orthopedic services. She'll follow-up in the office tomorrow, surgery is pending. Patient will discharge on baby aspirin, and we'll do daily Lovenox injections. Further recommendations from orthopedics to stop Lovenox one day prior to. Continue recommendations from orthopedics when to resume Plavix after surgery. Continue to follow-up with PCP. Thank you kindly for this consultation. Objective - Vital Signs Vital signs: Vital Signs Temp 98.2 F 08/03/21 08:20 Pulse 64 08/03/21 08:20 Resp 16 08/03/21 08:20 BP 124/58 09/27/21 08:20 Pulse Ox 94 L 08/03/21 02:00 Intake & Output 08/02/21 08/03/21 08/03/21 18:59 06:59 18:59 Intake Total 645 240 Balance 645 240 Intake: Intake, IV Titration 525 Amount Sodium Chloride 0.9% 1, 525 000 ml @ 75 mls/hr IV . [id number] [facility] Rx#:[id number] Oral 120 240 Other: Voiding Method Bedside Commode # Voids 1 1 1 - Labs CBC & Chem 7: 08/02/21 06:06 08/02/21 06:06
== END 2021-08-03 14:03 | disposition home or self-care (01) ==
LOC: EC 21:22 → 6NMEDSUR 07-31 01:23 → 6PED 08-02 13:41
PROVIDERS: ADMIT Orthopaedic Surgery; ATTEND Orthopaedic Surgery
DX: S82.851A Displaced trimalleolar fracture of right lower leg, initial encounter for closed fracture (principal); W19.XXXA Unspecified fall, initial encounter; Y92.009 Unspecified place in unspecified non-institutional (private) residence as the place of occurrence of the external cause; Z20.822 Contact with and (suspected) exposure to COVID-19; I10 Essential (primary) hypertension; E78.5 Hyperlipidemia, unspecified; E87.1 Hypo-osmolality and hyponatremia; I25.10 Atherosclerotic heart disease of native coronary artery without angina pectoris; R73.9 Hyperglycemia, unspecified; I25.2 Old myocardial infarction; E66.9 Obesity, unspecified; Z68.39 Body mass index [BMI] 39.0-39.9, adult; L40.9 Psoriasis, unspecified; R01.1 Cardiac murmur, unspecified; Z79.82 Long term (current) use of aspirin; Z79.899 Other long term (current) drug therapy; Z79.02 Long term (current) use of antithrombotics/antiplatelets; Z87.891 Personal history of nicotine dependence; Z95.1 Presence of aortocoronary bypass graft; Z95.5 Presence of coronary angioplasty implant and graft
CPT/HCPCS: 99285; 96374; 96361 ×4; 96372 ×4; 96376 ×5; 96375 ×2; 97530; 97161; 80048 ×3; 85025 ×2; 87635; 73600 ×2; 73620; G0378 ×4; J3360; J1650 ×4; J2704; J1170 ×5

== ENCOUNTER → 2021-08-06 | Outpatient (CLI) | payer BC ==
--- NOTE | 2021-08-07 07:13 | CT ---
EXAMINATION TYPE: CT ankle RT wo con DATE OF EXAM: 08/06/2021 COMPARISON: Right ankle x-ray July 30, 2021 and post reduction images July 31, 2021 HISTORY: Displaced trimalleolar fracture of right lower leg. Right ankle pain. CT DLP: 246.2 mGycm Automated exposure control for dose reduction was used. FINDINGS: There is redemonstration of acute comminuted displaced fracture through the distal fibular diaphysis or lateral malleolus with at least 2 small fracture fragments from punctate fracture fragments. The d ominant distal fracture fragment is posteriorly displaced roughly 9 mm and laterally displaced roughl y 4 mm with slight lateral angulation. Fracture is about the distal tibial metaphysis. Moderate to se richy soft tissue swelling and subcutaneous edema at this level is noted. Acute displaced fracture through the medial malleolus has roughly 3.2 x 1.9 cm fracture fragment and roughly 3 mm lateral displacement and slight distraction after reduction and splinting. Mild to moder ate subcutaneous edema soft tissue swelling begins at this level extending inferiorly. There is comminuted fracture deformity through the posterior malleolus with a few small fracture frag ments along the lateral aspect. There is abnormal widening of the distal tibial-fibular articulation with increased fluid. There is l ateral positioning of the talar dome relative to the distal tibia with abnormal lateral angulation. Remainder hindfoot and midfoot structures show mild to moderate narrowing and spurring particularly n ear the tarsal navicular and Lisfranc joint articulations. Some narrowing at the calcaneal cuboid art iculation is noted. No additional fracture is seen. Distal Achilles tendon appears intact. Normal sin us tarsi fat is identified. There is moderate to severe subcutaneous edema and soft tissue swelling along the volar surface great est laterally with more mild plantar surface subcutaneous edema present IMPRESSION: Displaced trimalleolar fractures with mortise disruption as detailed above.
== END | disposition home or self-care (01) ==
LOC: RADCTMAIN 16:05
PROVIDERS: ATTEND Orthopaedic Surgery
DX: S82.851D Displaced trimalleolar fracture of right lower leg, subsequent encounter for closed fracture with routine healing (principal)

== ENCOUNTER → 2021-10-30 | Outpatient (CLI) | payer BC ==
--- NOTE | 2021-10-30 11:28 | BD ---
EXAMINATION TYPE: Axial Bone Density DATE OF EXAM: 10/30/2021 COMPARISON: NONE CLINICAL HISTORY: Height: 64 IN Weight: 243 LBS FRAX RISK QUESTIONS: History of Fracture in Adulthood: RT FOOT AND HAND AGE 66 RISK FACTORS HISTORY OF: Active: LIMITED Diet low in dairy products/other sources of calcium: YES Postmenopausal woman: AGE 55 MEDICATIONS: Additional Medications: VIT D, BLOOD PRESSURE MEDS, LOW DOSE ASPIRIN, PLAVIX, CELEXA EXAM MEASUREMENTS: Bone mineral densitometry was performed using the [employer]. Bone mineral density as measured about the Lumbar spine is: ----- L1-L4(G/cm2): 1.253 T Score Values are as follows: ----- L2: 0.4 ----- L3: 1.0 ----- L4: 0.9 ----- L1-L4: 0.6 Bone mineral density BASELINE Bone mineral density about the R hip (g/cm2): 0.758 Bone mineral density about the L hip (g/cm2): 0.845 T Score values are as follows: -----R Neck: -2.0 -----L Neck: -1.4 -----R Total: -1.6 -----L Total: -0.4 Bone mineral density BASELINE IMPRESSION: Osteopenia (T Score between -2.5 and -1) in the bilateral hips. There is slightly increased risk of fracture and the patient may be considered for treatment. Re-Screen 2-5 years. NOTE: T-SCORE=SD OF THE YOUNG ADULT MEAN.
== END | disposition home or self-care (01) ==
LOC: RADBDWWP 10:46
PROVIDERS: ATTEND Internal Medicine
DX: N95.8 Other specified menopausal and perimenopausal disorders (principal); M85.80 Other specified disorders of bone density and structure, unspecified site
CPT/HCPCS: 77080

== ENCOUNTER 2023-03-20 17:09 | Emergency (ER) | payer MEDICARE ==
[2023-03-20 17:18] VITALS: RESP 18
[2023-03-20] MEDS ORDERED: KETOTIFEN 0.025% OPHTH DROPS 5 ML BTL BOTH EYES ONE (17:44)
[2023-03-20] MEDS ORDERED: POLYMYXIN B-TRIMETHOPRIM SULF (10,000-1) OPHTH DROPS 10 ML BTL BOTH EYES ONE (17:44)
--- NOTE | 2023-03-20 18:01 | ED ---
Eye Problem HPI - General Chief complaint: Eye Problems Stated complaint: Left eye swelling sent from urgent care Time Seen by Provider: 03/20/23 17:22 Source: patient, RN notes reviewed Mode of arrival: ambulatory Limitations: no limitations - History of Present Illness Initial comments: This is a 68-year-old female who presents to the emergency department for left eye redness and swelling. States that this started 2 days ago. Denies any associated pain, states that it is just uncomfortable because of the swelling. States that the swelling is covering some aspect of her visual field, but she is otherwise not have any problems seeing. She is having clear drainage from the eye and states that it is itchy. She was glasses but no contacts. She went to urgent care earlier today, who advised she come to the emergency department, as they could not measure her eye pressure. They did measure her visual acuity, which she states was normal. Denies any crusting of eyelashes or having the eyelashes matted shut. Also denies any injuries or foreign body sensations. While this is primarily in the left eye, she does feel like the right eye is a lso starting to get a little red Denies any fevers, chills, sore throat, cough, dyspnea, chest pain, palpitations, abdominal pain, nausea, vomiting, diarrhea, back pain, or headaches. MD chief complaint: eye redness Onset/Timin -: days(s) Onset Description: gradual Location: left eye - Related Data Home Medications Medication Instructions Recorded Confirmed ALPRAZolam [Xanax] 0.25 mg PO BID PRN 07/30/21 07/30/21 Aspirin 81 mg PO DAILY 07/30/21 07/30/21 Citalopram Hydrobromide [CeleXA] 20 mg PO DAILY 07/30/21 07/30/21 Metoprolol Tartrate [Lopressor] 25 mg PO BID 07/30/21 07/30/21 Previous Rx's Medication Instructions Recorded Baclofen 10 mg PO TID PRN #60 tab 07/31/21 Sennosides-Docusate Sodium 1 tab PO BID #60 tablet 07/31/21 [Senokot-S] Enoxaparin [Lovenox] 40 mg SQ DAILY #7 each 08/03/21 Famotidine [Pepcid] 20 mg PO DAILY tab 08/03/21 traMADol HCL [Ultram] 50 mg PO Q6HR PRN #28 tab 08/03/21 Allergies Allergy/AdvReac Type Severity Reaction Status Date / Time No Known Allergies Allergy Verified 03/20/23 17:18 Review of Systems ROS Statement: Those systems with pertinent positive or pertinent negative responses have been documented in the HPI. ROS Other: All systems not noted in ROS Statement are negative. Past Medical History Past Medical History: Chest Pain / Angina, Hyperlipidemia, Hypertension, Myocardial Infarction ([place]) Additional Past Medical History / Comment(s): PSORIASIS, HEART MURMUR. Last Myocardial Infarction Date:: 06/21/14 History of Any Multi-Drug Resistant Organisms: None Reported Past Surgical History: Coronary Bypass/CABG, Heart Catheterization With Stent Past Anesthesia/Blood Transfusion Reactions: No Reported Reaction Additional Past Anesthesia/Blood Transfusion Reaction / Comment(s): PT ADOPTED- NO FAMILY HX KNOWN. , PT STATES SHE HAS NO HX OF ANESTHESIA. Date of Last Stent Placement:: 06/21/2014 Past Psychological History: No Psychological Hx Reported Smoking Status: Former smoker Past Alcohol Use History: None Reported Past Drug Use History: None Reported - Past Family History Mother Additional Family Medical History / Comment(s): PT ADOPTED- NO KNOWN FAMILY HX. General Exam Limitations: no limitations General appearance: alert, in no apparent distress Head exam: Present: atraumatic, normocephalic, normal inspection Eye exam: Present: PERRL, EOMI, other (Conjunctival erythema and swelling, suggestive of chemosis. There is also swelling underneath the eye. There is no orbital or periorbital tenderness to palpation. No active drainage or crusting of eyelashes.) Pupils: Present: normal accommodation Expanded IOP (R) in mmH IOP (L) in mmH IOP measured with: Tonopen Course Vital Signs 03/20/23 03/20/23 17:13 19:04 Temperature 97.9 F 98.0 F Pulse Rate 80 82 Respiratory 18 18 Rate Blood Pressure 143/87 138/85 O2 Sat by Pulse 94 L 95 Oximetry Medical Decision Making - Medical Decision Making This is a 68-year-old female who presents to the emergency department for left eye redness and swelling. Was pt. sent in by a medical professional or institution? @ -Urgent care Did you speak to anyone other than the patient for history? @ -No Did you review nursing and triage notes? @ -Yes, and I agree, it is accurate with regards to the patient's symptoms. Were old charts reviewed? @ -No Differential Diagnosis? @ -Differential Eye Redness/Swelling: Conjunctivitis (allergic, viral, bacterial), chemosis, episcleritis, hyphema, subconjunctival hemorrhage, uveitis, glaucoma, this is not meant to be an all- inclusive list. What testing was considered but not performed? (CT, X-rays, U/S, labs)? Why? @ -None What meds were considered but not given? Why? @ -None Did you discuss the management of the patient with other professionals? @ -No Did you reconcile home meds? @ -No Was smoking cessation discussed for >3mins.? @ -No Was critical care preformed (if so, how long)? @ -No Were there social determinants of health that impacted care today? How? (Homelessness, low income, unemployed, alcoholism, drug addiction, transportation, low edu. Level, literacy, decrease access to med. care, snf, rehab)? @ -No Was there de-escalation of care discussed even if they declined? (Discuss DNR or withdrawal of care, Hospice)? @ -No What co-morbidities impacted this encounter? (DM, HTN, Smoking, COPD, CAD, Cancer, CVA, Hep., AIDS, mental health diagnosis, sleep apnea, morbid obesity)? @ -None Was patient admitted / discharged? @ -Discharged. Physical exam suggestive of a chemosis with the swelling and reported symptoms of itching and clear drainage. Patient reports having normal visual acuity testing at urgent care and declines the need to repeat this here. Intraocular pressure was within normal limits with 16 in the left eye and 15 in the right eye. Will treat the patient with both antihistamine and antibiotic eyedrops in the event there is a bacterial component. She was given Ketotifen and Polytrim eyedrops in the emergency department with dosing instructions reviewed. Given that the right eye is also starting to become a little red and irritated, advised she apply the drops to both eyes. Advised applying the Polytrim drops every 3 hours while awake for 7 days and the Ketotifen drops every 8 hours for 7 days as well. Information for ophthalmology follow-up provided. She is instructed to contact them in the morning for a follow-up appointment and reevaluation of symptoms. Undiagnosed new problem with uncertain prognosis? @ -None Drug Therapy requiring intensive monitoring for toxicity (Heparin, Nitro, In sulin, Cardizem)? @ -None Were any procedures done? @ -None Diagnosis/symptom? @ -Chemosis Acute, or Chronic, or Acute on Chronic? @ -Acute Uncomplicated (without systemic symptoms) or Complicated (systemic symptoms)? @ -Uncomplicated Side effects of treatment? @ -None Exacerbation, Progression, or Severe Exacerbation] @ -Not applicable Poses a threat to life or bodily function? @ -No Return precautions reviewed in depth, the patient is instructed to return to the emergency department with any new, worsening, or concerning symptoms. Patient verbalized understanding. This case was discussed in detail with the attending ED physician, Dr. Syed. Presentation, findings, and treatment plan discussed in detail as well. Disposition Clinical Impression: Chemosis of left conjunctiva Disposition: HOME SELF-CARE Instructions (If sedation given, give patient instructions): Conjunctivitis (ED) Additional Instructions: Return to the emergency department with any new, worsening, or concerning symptoms, especially if you have any vision loss, pain, or N/V. Use the Polytrim drops as one drop to both eyes every 3 hours while awake for 7 days. Use the Ketotifen eyedrops as one drop to each eye every 8 hours for 7 days. Contact ophthalmology as listed below first thing in the morning for a follow-up appointment and reevaluation of your symptoms. Make sure you let them know that you were seen in the emergency department and diagnosed with possible chemosis. Is patient prescribed a controlled substance at d/c from ED?: No Referrals: Lydia Prado MD [Primary Care Provider] - 1-2 days Brittanie Cortez MD [STAFF PHYSICIAN] - 1-2 days
[2023-03-20 19:05] VITALS: BP 138/85; PULSE 82; TEMP 98
== END 2023-03-20 19:04 | disposition home or self-care (01) ==
LOC: EC 17:09
DX: H11.422 Conjunctival edema, left eye (principal); I10 Essential (primary) hypertension; I25.2 Old myocardial infarction; Z79.82 Long term (current) use of aspirin; Z79.899 Other long term (current) drug therapy; Z95.1 Presence of aortocoronary bypass graft; Z87.891 Personal history of nicotine dependence
CPT/HCPCS: 99283

== ENCOUNTER 2023-03-29 19:06 | Observation (INO) | payer MEDICARE ==
--- NOTE | 2023-03-29 20:10 | XR ---
EXAMINATION TYPE: XR chest 2V DATE OF EXAM: 03/29/2023 COMPARISON: 06/22/2014 INDICATION: Pain with swelling TECHNIQUE: Frontal and lateral views of the chest are obtained. FINDINGS: The heart size is normal. The pulmonary vasculature is prominent. Some streak opacities in the periphery of the right mid lung. Correlate for atelectasis. Sternotomy w ires are in the midline.. IMPRESSION: 1. Clinical correlation for volume overload. 2. Streak atelectasis versus scarring right midlung.
[2023-03-29 20:21] LABS: Basophils # (A) 0.1 k/uL (0-0.2); Basophils % (A) 0 %; Eosinophils # (A) 0.3 k/uL (0-0.7); Eosinophils % (A) 3 %; HCT 46.2 % (34.0-46.0); HGB 15.2 gm/dL (11.4-16.0); Lymphocytes # (A) 2.4 k/uL (1.0-4.8); Lymphocytes % (A) 19 %; MCH 29.4 pg (25.0-35.0); MCHC 32.9 g/dL (31.0-37.0); MCV 89.4 fL (80.0-100.0); Mean Platelet Volume 7.6; Monocytes # (A) 0.4 k/uL (0-1.0); Monocytes % (A) 3 %; Neutrophils # (A) 9.2 k/uL (1.3-7.7); Neutrophils % (A) 74 %; Platelet Count 286 k/uL (150-450); RBC 5.17 m/uL (3.80-5.40); RDW 13.4 % (11.5-15.5); WBC 12.5 k/uL (3.8-10.6)
[2023-03-29 20:35] LABS: Partial Thromboplastin Time 26.4 sec (22.0-30.0); Prothrombin Time 10.4 sec (9.0-12.0)
[2023-03-29 20:36] LABS: ALT 25 U/L (4-34); AST 22 U/L (14-36); African American GFR (CKD) >90 (>60 ml/min/1.73 sqM); Albumin 4.1 g/dL (3.5-5.0); Alkaline Phosphatase 106 U/L (38-126); Anion Gap 8 mmol/L; Blood Urea Nitrogen 14 mg/dL (7-17); Calcium 9.3 mg/dL (8.4-10.2); Carbon Dioxide 26 mmol/L (22-30); Chloride 102 mmol/L (98-107); Non-African American GFR(CKD) >90 (>60 ml/min/1.73 sqM); Potassium 4.5 mmol/L (3.5-5.1); Sodium 136 mmol/L (137-145); Total Bilirubin 0.9 mg/dL (0.2-1.3); Total Protein 7.5 g/dL (6.3-8.2)
[2023-03-29] MEDS ORDERED: KETOROLAC 15 MG/ML 1 ML VIAL IVP STA (20:40)
[2023-03-29] MEDS ORDERED: ASPIRIN 81 MG PO STA (20:40)
[2023-03-29] MEDS ORDERED: LIDOCAINE 5% PATCH TOPICAL STA (20:41)
[2023-03-29 21:03] LABS: Glucose 139 mg/dL (74-99)
[2023-03-29] MEDS ORDERED: NALOXONE 0.4 MG/ML 1 ML VIAL IV PRN (22:10)
[2023-03-29] MEDS: HEPARIN SODIUM,PORCINE/PF 5,000 UNIT/0.5 ML SYRINGE SQ SCH (23:01)
--- NOTE | 2023-03-30 00:40 | ED ---
General Adult HPI - General Chief complaint: Neck Pain/Injury Stated complaint: REFER-TEST NEEDED Time Seen by Provider: 03/29/23 20:12 Source: patient, RN notes reviewed, old records reviewed Mode of arrival: ambulatory Limitations: no limitations - History of Present Illness Initial comments: Patient is a 68-year-old female with significant cardiac history including multiple cardiac stents, hypertension who presents emergency Department complaining of neck pain. States she woke up with the pain. It is worse with movement. Over the left side of her neck radiating down towards her left shoulder. Worse with movements of her neck as well as left shoulder. Minimal involvement of the left clavicle but no other chest pain. No other back pain. No shortness of breath, cough, difficulty breathing. No nausea or vomiting. No diaphoretic episodes. Patient presents over concern of possible muscle strain and should resume IP secondary to she slept if she woke up with it, however screening EKG in triage showed EKG changes and therefore she was immediately placed in a room for evaluation. She denies any chest pain. Denies any recent chest pain. 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 She states last EKG she received is probably at [facility]. - Related Data Home Medications Medication Instructions Recorded Confirmed Aspirin 81 mg PO DAILY 07/30/21 03/29/23 Citalopram Hydrobromide [CeleXA] 20 mg PO DAILY 07/30/21 03/29/23 Metoprolol Tartrate [Lopressor] 25 mg PO BID 07/30/21 03/29/23 Ascorbic Acid [Vitamin C] 1,000 mg PO DAILY 03/29/23 03/29/23 Calcium Carb/Mag Ox/Zinc Sulf 1 tab PO DAILY 03/29/23 03/29/23 [Sax-Njw-Adae 334-134-5 mg Tab] Cholecalciferol [Vitamin D3 (25 50 mcg PO DAILY 03/29/23 03/29/23 Mcg = 1000 Iu)] Clopidogrel [Plavix] 75 mg PO DAILY 03/29/23 03/29/23 Ergocalciferol (Vitamin D2) 1,250 mcg PO Q30D 03/29/23 03/29/23 [Drisdol (50,000 Iu)] Rosuvastatin Calcium 5 mg PO DAILY 03/29/23 03/29/23 Allergies Allergy/AdvReac Type Severity Reaction Status Date / Time No Known Allergies Allergy Verified 03/29/23 22:45 Review of Systems ROS Statement: Those systems with pertinent positive or pertinent negative responses have been documented in the HPI. Review of Systems: CONST: Denies fever EYES: Denies blurry vision ENT: Denies nasal congestion C/V: Denies Chest pain RESP: Denies shortness of breath GI: Denies abdominal pain : Denies dysuria SKIN: Denies rash. MSK: Endorses neck pain, shoulder pain NEURO: Denies headache ROS Other: All systems not noted in ROS Statement are negative. Past Medical History Past Medical History: Chest Pain / Angina, Hyperlipidemia, Hypertension, Myocardial Infarction ([place]) Additional Past Medical History / Comment(s): PSORIASIS, HEART MURMUR. Last Myocardial Infarction Date:: 06/21/14 History of Any Multi-Drug Resistant Organisms: None Reported Past Surgical History: Coronary Bypass/CABG, Heart Catheterization With Stent, Orthopedic Surgery Past Anesthesia/Blood Transfusion Reactions: No Reported Reaction Additional Past Anesthesia/Blood Transfusion Reaction / Comment(s): PT ADOPTED- NO FAMILY HX KNOWN. , PT STATES SHE HAS NO HX OF ANESTHESIA. Date of Last Stent Placement:: 06/21/2014 Past Psychological History: No Psychological Hx Reported Smoking Status: Former smoker Past Alcohol Use History: None Reported Past Drug Use History: None Reported - Past Family History Mother Additional Family Medical History / Comment(s): PT ADOPTED- NO KNOWN FAMILY HX. General Exam - General Exam Comments Initial Comments: General: Appears in no acute distress. HEAD: Normal with no signs of head trauma. EYES: PERRLA, EOMI, conjunctiva normal, no discharge. ENT: Hearing grossly intact, normal oropharynx. RESPIRATORY: Clear breath sounds bilaterally. No wheezes, rales, or rhonchi. C/V: Regular rate and rhythm. S1 and S2 auscultated, peripheral pulses 2+ and intact throughout ABD: Abd is soft, nontender, nondistended EXT: Tenderness palpation over the left trapezius muscle along the lateral neck as well as towards the left shoulder. Worse with movement of the neck. No midline cervical spine tenderness palpation. Tenderness worse with movement of these areas. No obvious chest pain on palpation. SKIN: No rashes or lesions observed on exposed skin. NEURO: Alert and oriented 4. Limitations: no limitations Course Vital Signs 03/29/23 03/29/23 03/29/23 19:15 20:59 23:06 Temperature 98.3 F Pulse Rate 83 72 68 Respiratory 16 14 15 Rate Blood Pressure 163/81 144/71 160/79 O2 Sat by Pulse 93 L 93 L 94 L Oximetry Medical Decision Making - Medical Decision Making Was pt. sent in by a medical professional or institution (, PA, CERTIFIED CAREGIVER, urgent care, hospital, or [facility]...) When possible be specific @ -No Did you speak to anyone other than the patient for history (EMS, parent, family, police, friend...)? What history was obtained from this source @ -No Did you review nursing and triage notes (agree or disagree)? Why? @ -I reviewed and agree with nursing and triage notes Were old charts reviewed (outside hosp., previous admission, EMS record, old EKG, old radiological studies, urgent care reports/EKG's, [facility] records)? Report findings @ -Old charts reviewed including EKGs from 2013. Patient also has old EKG reviewed from [facility] between obtained from 2014. Differential Diagnosis (chest pain, altered mental status, abdominal pain women, abdominal pain men, vaginal bleeding, weakness, fever, dyspnea, syncope, headache, dizziness, GI bleed, back pain, seizure, CVA, palpatations, mental health, musculoskeletal)? @ -Differential Musculoskeletal Muscular strain, contusion, ligament sprain, fracture, arthritis, septic arthritis, bursitis, cellulitis, muscle spasm, nerve compression, DVT, arterial occlusion, herpes zoster, electrolyte abnormality, tumor.... This is not meant to be in all inclusive listDifferential Chest Pain: Stable Angina, Unstable Angina, STEMI, NSTEMI Aortic Dissection, Pneumothorax, Musculoskeletal, Esophageal Spasm GERD, Cholecystitis, Pancreatitis, Zoster, this is not meant to be an all-inclusive list. EKG interpreted by me (3pts min.). @ -As above X-rays interpreted by me (1pt min.). @ -Chest x-ray shows no obvious acute cardiopulmonary process. Radiology concern for mild pulmonary vascular congestion however BNP is within acceptable limits for her age. CT interpreted by me (1pt min.). @ -None done U/S interpreted by me (1pt. min.). @ -None done What testing was considered but not performed or refused? (CT, X-rays, U/S, labs)? Why? @ -None What meds were considered but not given or refused? Why? @ -None Did you discuss the management of the patient with other professionals (professionals i.e. , PA, CERTIFIED CAREGIVER, lab, RT, psych nurse, social worker masters, primary school teacher librarian, teacher, inshore undersea warfare officer, manager of case)? Give summary @ -Case discussed with the admitting physician Dr. Amaro who accepted the patient. Was smoking cessation discussed for >3mins.? @ -No Was critical care preformed (if so, how long)? @ -No Were there social determinants of health that impacted care today? How? (Homelessness, low income, unemployed, alcoholism, drug addiction, transportation, low edu. Level, literacy, decrease access to med. care, [facility], rehab)? @ -No Was there de-escalation of care discussed even if they declined (Discuss DNR or withdrawal of care, Hospice)? DNR status @ -No What co-morbidities impacted this encounter? (DM, HTN, Smoking, COPD, CAD, Cancer, CVA, ARF, Chemo, Hep., AIDS, mental health diagnosis, sleep apnea, morbid obesity)? @ -CAD, multiple cardiac stents Was patient admitted / discharged? Hospital course, mention meds given and route, prescriptions, significant lab abnormalities, going to OR and other pertinent info. @ -Based on the patient's presentation and physical exam, there is concern for cardiac disease causing atypical presentation considering the new EKG changes of unknown chronicity present. Patient has T-wave inversions located in the inferior leads II, III, aVF. These do appear new with prior EKGs from our system as well as prior EKGs from [facility] however these EKGs are all over 8 years old. I did discuss this with the patient and despite appearing to be musculoskeletal neck pain, we will obtain a cardiopulmonary workup. She was in agreement with this plan. She'll be symptomatically treated with Toradol, lidocaine patch, aspirin. Vital signs within acceptable limits. EKG showed the T-wave inversions but no other findings. X-ray unremarkable. Labs are unremarkable including an undetectable troponin. I discussed results with the patient. Due to the EKG changes we will admit the patient to cardiac observation for cardiology evaluation. Patient is high risk with a significant cardiac history including multiple cardiac stents. She was in agreement this plan. Cardiology consulted. I spoke with the admitting physician Dr. Amaro who covers for Dr. Prado who accepted the patient. We will trend the troponin. Undiagnosed new problem with uncertain prognosis? @ -No Drug Therapy requiring intensive monitoring for toxicity (Heparin, Nitro, Insulin, Cardizem)? @ -No Were any procedures done? @ -No Diagnosis/symptom? @ -Musculoskeletal strain of the neck Acute, or Chronic, or Acute on Chronic? @ -Acute Uncomplicated (without systemic symptoms) or Complicated (systemic symptoms)? @ -Complicated Side effects of treatment? @ -No Exacerbation, Progression, or Severe Exacerbation? @ -No Poses a threat to life or bodily function? How? (Chest pain, [place], [place], pneumonia, PE, COPD, DKA, ARF, appy, cholecystitis, CVA, Diverticulitis, Homicidal, Suici stefan, threat to staff... and all critical care pts) @ -No Diagnosis/symptom? @ -T wave inversions of unknown chronicity Acute, or Chronic, or Acute on Chronic? @ -Acute Uncomplicated (without systemic symptoms) or Complicated (systemic symptoms)? @ -Uncomplicated Side effects of treatment? @ -none Exacerbation, Progression, or Severe Exacerbation] @ -no Poses a threat to life or bodily function? @ -Potentially - Lab Data Result diagrams: 03/29/23 19:57 03/29/23 19:57 Lab Results 03/29/23 03/29/23 03/29/23 Range/Units 19:57 19:57 19:57 WBC 12.5 H (3.8-10.6) k/uL RBC 5.17 (3.80-5.40) m/uL Hgb 15.2 (11.4-16.0) gm/dL Hct 46.2 H (34.0-46.0) % MCV 89.4 (80.0-100.0) fL MCH 29.4 (25.0-35.0) pg MCHC 32.9 (31.0-37.0) g/dL RDW 13.4 (11.5-15.5) % Plt Count 286 (150-450) k/uL MPV 7.6 Neutrophils % 74 % Lymphocytes % 19 % Monocytes % 3 % Eosinophils % 3 % Basophils % 0 % Neutrophils # 9.2 H (1.3-7.7) k/uL Lymphocytes # 2.4 (1.0-4.8) k/uL Monocytes # 0.4 (0-1.0) k/uL Eosinophils # 0.3 (0-0.7) k/uL Basophils # 0.1 (0-0.2) k/uL PT 10.4 (9.0-12.0) sec INR 1.0 (<1.2) APTT 26.4 (22.0-30.0) sec Sodium 136 L (137-145) mmol/L Potassium 4.5 (3.5-5.1) mmol/L Chloride 102 (98-107) mmol/L Carbon Dioxide 26 (22-30) mmol/L Anion Gap 8 mmol/L BUN 14 (7-17) mg/dL Creatinine 0.67 (0.52-1.04) mg/dL Est GFR (CKD-EPI)AfAm >90 (>60 ml/min/1.73 sqM) Est GFR (CKD-EPI)NonAf >90 (>60 ml/min/1.73 sqM) Glucose 139 H (74-99) mg/dL Calcium 9.3 (8.4-10.2) mg/dL Total Bilirubin 0.9 (0.2-1.3) mg/dL AST 22 (14-36) U/L ALT 25 (4-34) U/L Alkaline Phosphatase 106 (38-126) U/L Troponin I (0.000-0.034) ng/mL NT-Pro-B Natriuret Pep pg/mL Total Protein 7.5 (6.3-8.2) g/dL Albumin 4.1 (3.5-5.0) g/dL 03/29/23 03/29/23 Range/Units 19:57 19:57 WBC (3.8-10.6) k/uL RBC (3.80-5.40) m/uL Hgb (11.4-16.0) gm/dL Hct (34.0-46.0) % MCV (80.0-100.0) fL MCH (25.0-35.0) pg MCHC (31.0-37.0) g/dL RDW (11.5-15.5) % Plt Count (150-450) k/uL MPV Neutrophils % % Lymphocytes % % Monocytes % % Eosinophils % % Basophils % % Neutrophils # (1.3-7.7) k/uL Lymphocytes # (1.0-4.8) k/uL Monocytes # (0-1.0) k/uL Eosinophils # (0-0.7) k/uL Basophils # (0-0.2) k/uL PT (9.0-12.0) sec INR (<1.2) APTT (22.0-30.0) sec Sodium (137-145) mmol/L Potassium (3.5-5.1) mmol/L Chloride (98-107) mmol/L Carbon Dioxide (22-30) mmol/L Anion Gap mmol/L BUN (7-17) mg/dL Creatinine (0.52-1.04) mg/dL Est GFR (CKD-EPI)AfAm (>60 ml/min/1.73 sqM) Est GFR (CKD-EPI)NonAf (>60 ml/min/1.73 sqM) Glucose (74-99) mg/dL Calcium (8.4-10.2) mg/dL Total Bilirubin (0.2-1.3) mg/dL AST (14-36) U/L ALT (4-34) U/L Alkaline Phosphatase (38-126) U/L Troponin I <0.012 (0.000-0.034) ng/mL NT-Pro-B Natriuret Pep 536 pg/mL Total Protein (6.3-8.2) g/dL Albumin (3.5-5.0) g/dL - EKG Data -: EKG Interpreted by Me EKG Comments: 12-lead Electrocardiogram Interpretation Note EKG was reviewed and interpreted by myself. 12-lead ECG performed at 1946 is interpreted by me as revealing normal sinus rhythm at a rate of 67 beats per minute. [place] is indeterminate, does appear slightly right axis deviation. SC intervals 125 ms, QRS duration 76 ms, QTC is 392 ms.. Patient does have T-wave inversions of unknown chronicity in leads II, 3, aVF. These are new when compared with the patient's most recent EKGs which were from 2013 and 2014. Disposition Clinical Impression: Strain of neck muscle, T wave inversion in EKG Disposition: ADMITTED IP TO THIS [facility] Condition: Stable Time of Disposition: 21:55
[2023-03-30 07:04] LABS: Basophils # (A) 0.1 k/uL (0-0.2); Basophils % (A) 1 %; Eosinophils # (A) 0.4 k/uL (0-0.7); Eosinophils % (A) 5 %; HCT 45.2 % (34.0-46.0); HGB 14.7 gm/dL (11.4-16.0); Lymphocytes # (A) 2.6 k/uL (1.0-4.8); Lymphocytes % (A) 33 %; MCH 29.4 pg (25.0-35.0); MCHC 32.5 g/dL (31.0-37.0); MCV 90.6 fL (80.0-100.0); Mean Platelet Volume 7.4; Monocytes # (A) 0.4 k/uL (0-1.0); Monocytes % (A) 5 %; Neutrophils # (A) 4.4 k/uL (1.3-7.7); Neutrophils % (A) 56 %; Platelet Count 241 k/uL (150-450); RBC 4.99 m/uL (3.80-5.40); RDW 13.5 % (11.5-15.5); WBC 7.8 k/uL (3.8-10.6)
[2023-03-30 07:29] LABS: African American GFR (CKD) >90 (>60 ml/min/1.73 sqM); Anion Gap 7 mmol/L; Blood Urea Nitrogen 16 mg/dL (7-17); Calcium 8.8 mg/dL (8.4-10.2); Carbon Dioxide 26 mmol/L (22-30); Chloride 104 mmol/L (98-107); Glucose 118 mg/dL (74-99); Non-African American GFR(CKD) 85 (>60 ml/min/1.73 sqM); Potassium 3.9 mmol/L (3.5-5.1); Sodium 137 mmol/L (137-145)
[2023-03-30] MEDS: HEPARIN SODIUM,PORCINE/PF 5,000 UNIT/0.5 ML SYRINGE SQ SCH ×2 (10:30→18:58)
[2023-03-30] MEDS: ASPIRIN 81 MG PO SCH (10:31)
[2023-03-30] MEDS: METOPROLOL TARTRATE 25 MG TAB PO SCH ×2 (10:31→20:47)
[2023-03-30] MEDS: CLOPIDOGREL 75 MG TAB PO SCH (10:31)
--- NOTE | 2023-03-30 13:22 | P.CRDCN ---
History of Present Illness Consult date: 03/30/23 Reason for Consult (text): T-wave inversion History of present illness: History of present illness: This is a 68 year old female with prior history of acute HI in 2014 status post coronary angiography revealed normal left main, diffuse disease in the LAD with a 50% stenosis and a large diagonal branch, nondominant left circumflex with for abuse marginal branches and a 99% stenosis at the takeoff of the second obtuse marginal branch followed by another 95% stenosis beyond that initial stenosis. The right coronary artery is a large dominant vessel with a 60% stenosis in the midsegment. LV gram revealed anterolateral hypokinesis with ejection fraction was mildly reduced at about 50%. No gradient across the aortic valve LVEDP 26 mmHg followed by successful stenting of proximal and mid left circumflex, history of tobacco use and dependence, hypertension, hyperlipidemia. Patient presented to the hospital with complaints of left-sided neck pain that started from her ear down her neck into her collarbone the front and the back area. She denies having any problems with her neck in the past. She was sitting at rest at the onset of this. She denies having any chest pain or discomfort. She states she did have a severe eye infection a week before and initially thought that the infection was going from her eye into her ear. She denies having any shortness of breath, no sweats no lightheadedness or dizziness, no palpitations or fluttering feeling in her chest. She denies that it feels the same as when she had her stent done to her heart in 2014. She does have some pain in her left arm which occurs when she lifts the arm in the anterior position. Patient is seen today in the emergency center waiting for a bed on the cardiac stepdown unit. EKG sinus rhythm with T-wave inversions Chest x-ray: Clinical correlation for volume overload. Streaky atelectasis versus scarring right midlung. CBC is unremarkable. Initial WBC 12.5. Electrolytes are normal, kidney function is normal, liver function test is normal. ProBNP 536. Troponin negative 3. Home cardiac medications: Aspirin 81 mg daily, Lasix 75 mg daily, Lopressor 25 mg twice daily, lovastatin 5 mg daily Cardiac catheterization as above in 2013 SYED 2013: Severe mitral regurgitation and ruptured chordae tendon and partial flailing of the posterior mitral leaflet. Left atrial enlargement. No evidence of PFO. No clot in the left ventricle appendage. Review Of Systems: At the time of my evaluation: Constitutional: No fever, no chills. No weakness, fatigue or lethargy. EENT: No headache. No dizziness. Lungs: No shortness of breath, cough, no sputum production. No wheezing. Cardiovascular: No chest pain, no lower extremity edema. No palpitations. No paroxysmal nocturnal dyspnea. No orthopnea. No lightheadedness or dizziness. No syncopal episodes. Abdominal: No abdominal pain. No nausea, vomiting. No diarrhea. No constipation. No bloody or tarry stools. Genitourinary: No dysuria.. No urinary retention. Musculoskeletal: No myalgias. No muscle weakness, no frequent falls. No back pain. No neck pain. Left shoulder discomfort. Integumentary: No wounds. No rash. No unusual bruising. Neurologic: No aphasia. No facial droop. No change in mentation. No head injury. No headache. Physical examination: Gen: This is a 68 year old female. She is resting on ER stretcher and appears to be comfortable and in no acute distress. VS: reviewed HEENT: Head is atraumatic, normocephalic. Pupils equal, round. Sclerae is anicteric. NECK: Supple. No JVD. . LUNGS: Clear to auscultation. No wheezes or rhonchi. No intercostal retractions. HEART: Regular rate and rhythm. Systolic murmur. ABDOMEN: Soft No tenderness. EXTREMITIES: No pedal edema. No calf tenderness. NEUROLOGICAL: Patient is awake, alert and oriented x3. 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 Nurse practitioner note has been reviewed, I agree with documented findings and plan of care. Patient was seen and examined. Past Medical History Past Medical History: Chest Pain / Angina, Hyperlipidemia, Hypertension, Myocardial Infarction (HI) Additional Past Medical History / Comment(s): PSORIASIS, HEART MURMUR. Last Myocardial Infarction Date:: 06/21/14 History of Any Multi-Drug Resistant Organisms: None Reported Past Surgical History: Coronary Bypass/CABG, Heart Catheterization With Stent, Orthopedic Surgery Past Anesthesia/Blood Transfusion Reactions: No Reported Reaction Additional Past Anesthesia/Blood Transfusion Reaction / Comment(s): PT ADOPTED- NO FAMILY HX KNOWN. , PT STATES SHE HAS NO HX OF ANESTHESIA. Date of Last Stent Placement:: 06/21/2014 Past Psychological History: No Psychological Hx Reported Smoking Status: Former smoker Past Alcohol Use History: None Reported Past Drug Use History: None Reported - Past Family History Mother Additional Family Medical History / Comment(s): PT ADOPTED- NO KNOWN FAMILY HX. Medications and Allergies Home Medications Medication Instructions Recorded Confirmed Type Aspirin 81 mg PO DAILY 07/30/21 03/29/23 History Citalopram Hydrobromide [CeleXA] 20 mg PO DAILY 07/30/21 03/29/23 History Metoprolol Tartrate [Lopressor] 25 mg PO BID 07/30/21 03/29/23 History Ascorbic Acid [Vitamin C] 1,000 mg PO DAILY 03/29/23 03/29/23 History Calcium Carb/Mag Ox/Zinc Sulf 1 tab PO DAILY 03/29/23 03/29/23 History [Hqo-Dfc-Hnos 334-134-5 mg Tab] Cholecalciferol [Vitamin D3 (25 50 mcg PO DAILY 03/29/23 03/29/23 History Mcg = 1000 Iu)] Clopidogrel [Plavix] 75 mg PO DAILY 03/29/23 03/29/23 History Ergocalciferol (Vitamin D2) 1,250 mcg PO Q30D 03/29/23 03/29/23 History [Drisdol (50,000 Iu)] Rosuvastatin Calcium 5 mg PO DAILY 03/29/23 03/29/23 History Allergies Allergy/AdvReac Type Severity Reaction Status Date / Time No Known Allergies Allergy Verified 03/29/23 22:45 Physical Exam Vitals: Vital Signs Temp Pulse Pulse Resp BP BP Pulse Ox 03/30/23 05:15 98.1 F 70 17 130/70 96 03/30/23 01:18 76 14 142/70 85 L 03/29/23 23:06 68 15 160/79 94 L 03/29/23 20:59 72 14 144/71 93 L 03/29/23 19:15 98.3 F 83 16 163/81 93 L Intake and Output 03/29/23 03/30/2303/30/23 22:59 06:59 14:59 Other: Weight 111.13 kg Results 03/30/23 06:53 03/30/23 06:53 Cardiac Enzymes 03/29/23 03/29/23 03/29/23 Range/Units 19:57 19:57 23:47 AST 22 (14-36) U/L Troponin I <0.012 <0.012 (0.000-0.034) ng/mL 03/30/23 Range/Units 02:20 AST (14-36) U/L Troponin I <0.012 (0.000-0.034) ng/mL Coagulation 03/29/23 Range/Units 19:57 PT 10.4 (9.0-12.0) sec APTT 26.4 (22.0-30.0) sec CBC 03/29/23 03/30/23 Range/Units 19:57 06:53 WBC 12.5 H 7.8 (3.8-10.6) k/uL RBC 5.17 4.99 (3.80-5.40) m/uL Hgb 15.2 14.7 (11.4-16.0) gm/dL Hct 46.2 H 45.2 (34.0-46.0) % Plt Count 286 241 (150-450) k/uL Comprehensive Metabolic Panel 03/29/23 03/30/23 Range/Units 19:57 06:53 Sodium 136 L 137 (137-145) mmol/L Potassium 4.5 3.9 (3.5-5.1) mmol/L Chloride 102 104 (98-107) mmol/L Carbon Dioxide 26 26 (22-30) mmol/L BUN 14 16 (7-17) mg/dL Creatinine 0.67 0.74 (0.52-1.04) mg/dL Glucose 139 H 118 H (74-99) mg/dL Calcium 9.3 8.8 (8.4-10.2) mg/dL AST 22 (14-36) U/L ALT 25 (4-34) U/L Alkaline Phosphatase 106 (38-126) U/L Total Protein 7.5 (6.3-8.2) g/dL Albumin 4.1 (3.5-5.0) g/dL Current Medications Generic Name Dose Route Start Last Admin Trade Name Freq PRN Reason Stop Dose Admin Aspirin 81 mg 03/30/23 09:45 Aspirin 81 Mg PO DAILY [facility] Atorvastatin Calcium 10 mg 03/31/23 09:00 Atorvastatin 10 Mg Tab PO DAILY [facility] Citalopram Hydrobromide 20 mg 03/31/23 09:00 Citalopram Hydrobromide 20 Mg Tab PO DAILY [facility] Clopidogrel Bisulfate 75 mg 03/30/23 09:45 Clopidogrel 75 Mg Tab PO DAILY [facility] Heparin Sodium (Porcine) 5,000 unit 03/30/23 00:00 03/29/23 23:01 Heparin Sodium,Porcine/Pf 5,000 Unit/0.5 Ml Syringe SQ 5,000 unit Q8HR [facility] Administration Metoprolol Tartrate 25 mg 03/30/23 09:45 Metoprolol Tartrate 25 Mg Tab PO BID [facility] Naloxone HCl 0.2 mg 03/29/23 22:10 Naloxone 0.4 Mg/Ml 1 Ml Vial IV Q2M PRN Opioid Reversal Intake and Output 03/29/23 03/30/23 03/30/23 22:59 06:59 14:59 Other: Weight 111.13 kg 03/30/23 06:53 03/30/23 06:53
[2023-03-30] MEDS ORDERED: LIDOCAINE 5% PATCH TOPICAL SCH (21:00)
[2023-03-30] MEDS: KETOROLAC 15 MG/ML 1 ML VIAL IVP SCH (21:35)
[2023-03-31] MEDS: HEPARIN SODIUM,PORCINE/PF 5,000 UNIT/0.5 ML SYRINGE SQ SCH ×2 (00:31→09:08)
--- NOTE | 2023-03-31 00:44 | P.HPIM ---
History of Present Illness H&P Date: 03/30/23 Chief Complaint: Chest discomfort Patient is a 68 old female with a known history of hypertension, hyperlipidemia, history of MS, coronary artery disease with history of CABG, 6 history of stent placement and prior history of smoking presents to ER with the complaints of [facility] pain. Patient states that she woke up with pain. Pain is mainly on the left side of the neck and radiating down the shoulder. Worse with movement of the left shoulder. Patient was unable to lift her hand above the shoulder. No complaints of chest pain. No shortness of breath. No cough or sputum production. Denied any fever or chills. No nausea or vomiting. No diaphoresis. Patient denied any lifting heavy weight. He states that she usually sleeps on the right shoulder. EKG showed EKG changes with T-wave inversions in the inferior wall leads. Patient was admitted to the hospital for evaluation and cardiology. No recent follow-up with cardiology as per patient. No recent illnesses or sick contacts. Chest x-ray showed clinical correlation for volume overload. Streak atelectasis versus scarring right mid lung. Review of Systems Constitutional: Patient denies any fever or chills . No generalized weakness or weight loss. Abdomen: Patient denied nausea vomiting and diarrhea and abdominal pain. Cardiovascular: Patient denies any chest pain or short of breath no palpitations. Respiratory: patient denied any cough is from production. No shortness of breath Neurologic: Patient denied any numbness or tingling headache. Musculoskeletal: Patient denies any complaints of joint swelling or deformity. Left-sided neck pain and shoulder pain. Skin: Negative Psychiatric: Negative Endocrine: No heat or cold intolerance. No recent weight gain. Genitourinary: No dysuria or hematuria. All other 14 point ROS negative except the above Past Medical History Past Medical History: Chest Pain / Angina, Hyperlipidemia, Hypertension, Myocardial Infarction (MS) Additional Past Medical History / Comment(s): PSORIASIS, HEART MURMUR. Last Myocardial Infarction Date:: 06/21/14 History of Any Multi-Drug Resistant Organisms: None Reported Past Surgical History: Coronary Bypass/CABG, Heart Catheterization With Stent, Orthopedic Surgery Past Anesthesia/Blood Transfusion Reactions: No Reported Reaction Additional Past Anesthesia/Blood Transfusion Reaction / Comment(s): PT ADOPTED- NO FAMILY HX KNOWN. , PT STATES SHE HAS NO HX OF ANESTHESIA. Date of Last Stent Placement:: 06/21/2014 Past Psychological History: No Psychological Hx Reported Smoking Status: Former smoker Past Alcohol Use History: None Reported Past Drug Use History: None Reported - Past Family History Mother Additional Family Medical History / Comment(s): PT ADOPTED- NO KNOWN FAMILY HX. Medications and Allergies Home Medications Medication Instructions Recorded Confirmed Type Aspirin 81 mg PO DAILY 07/30/21 03/29/23 History Citalopram Hydrobromide [CeleXA] 20 mg PO DAILY 07/30/21 03/29/23 History Metoprolol Tartrate [Lopressor] 25 mg PO BID 07/30/21 03/29/23 History Ascorbic Acid [Vitamin C] 1,000 mg PO DAILY 03/29/23 03/29/23 History Calcium Carb/Mag Ox/Zinc Sulf 1 tab PO DAILY 03/29/23 03/29/23 History [Mhf-Ela-Oswu 334-134-5 mg Tab] Cholecalciferol [Vitamin D3 (25 50 mcg PO DAILY 03/29/23 03/29/23 History Mcg = 1000 Iu)] Clopidogrel [Plavix] 75 mg PO DAILY 03/29/23 03/29/23 History Ergocalciferol (Vitamin D2) 1,250 mcg PO Q30D 03/29/23 03/29/23 History [Drisdol (50,000 Iu)] Rosuvastatin Calcium 5 mg PO DAILY 03/29/23 03/29/23 History Allergies Allergy/AdvReac Type Severity Reaction Status Date / Time No Known Allergies Allergy Verified 03/29/23 22:45 Physical Exam Vitals: Vital Signs Temp Pulse Pulse Resp BP BP Pulse Ox 03/30/23 05:15 98.1 F 70 17 130/70 96 03/30/23 01:18 76 14 142/70 85 L 03/29/23 23:06 68 15 160/79 94 L 03/29/23 20:59 72 14 144/71 93 L 03/29/23 19:15 98.3 F 83 16 163/81 93 L Intake and Output 03/29/23 03/30/23 03/30/23 22:59 06:59 14:59 Other: Weight 111.13 kg PHYSICAL EXAMINATION: Patient is lying in the bed comfortably, no acute distress, awake alert and oriented.. HEENT: Normocephalic. Neck is supple. Pupils reactive. Nostrils clear. Oral cavity is moist. Neck reveals no JVD, carotid bruits, or thyromegaly. CHEST EXAMINATION: Trachea is central. Symmetrical expansion. Lung henson clear to auscultation and percussion. CARDIAC: Normal S1, S2 with no gallops. No murmurs ABDOMEN: Soft. Bowel sounds normal. No organomegaly. No abdominal bruits. Extremities: reveal no edema. No clubbing or cyanosis Neurologically awake, alert, oriented x3 with well-coordinated movements. No focal deficits noted Skin: No rash or skin lesions. Psychiatric: Coperative. Nonsuicidal Musculoskeletal: No joint swelling or deformity. Normal range of motion. Results CBC & Chem 7: 03/30/23 06:53 03/31/23 07:10 Labs: Abnormal Lab Results - Last 24 Hours (Table) 03/29/23 03/29/23 03/30/23 Range/Units 19:57 19:57 06:53 WBC 12.5 H (3.8-10.6) k/uL Hct 46.2 H (34.0-46.0) % Neutrophils # 9.2 H (1.3-7.7) k/uL Sodium 136 L (137-145) mmol/L Glucose 139 H 118 H (74-99) mg/dL Thrombosis Risk Factor Assmnt - DVT/VTE Prophylaxis DVT/VTE Prophylaxis: Pharmacologic Prophylaxis ordered Assessment and Plan Assessment: Left-sided neck pain and shoulder pain. Likely musculoskeletal. Ruled out ACS. T-wave inversions in the inferior leads. Coronary artery disease history of stent placement to proximal and mid circumflex. Hypertension Hyperlipidemia History MS History of heart murmur Coronary artery disease status post CABG Primary history of smoking DVT prophylaxis with heparin subcu Plan: Patient will be consulted on telemetry monitoring. Troponin 3 negative. ProBNP level is not elevated., 536. Cardiology has seen the patient and request for medical records from the hospital was sent. Continue with home medications and follow closely. Time with Patient: Greater than 30
[2023-03-31 08:01] LABS: Calcium 9.1 mg/dL (8.4-10.2); Potassium 4.3 mmol/L (3.5-5.1)
[2023-03-31] MEDS ORDERED: CITALOPRAM HYDROBROMIDE 20 MG TAB PO SCH (09:00)
[2023-03-31] MEDS ORDERED: LIDOCAINE 5% PATCH TOPICAL SCH (09:00)
[2023-03-31] MEDS ORDERED: ATORVASTATIN 10 MG TAB PO SCH (09:00)
[2023-03-31] MEDS: CLOPIDOGREL 75 MG TAB PO SCH (09:07)
[2023-03-31] MEDS: KETOROLAC 15 MG/ML 1 ML VIAL IVP SCH (09:07)
[2023-03-31] MEDS: METOPROLOL TARTRATE 25 MG TAB PO SCH (09:07)
[2023-03-31] MEDS: ASPIRIN 81 MG PO SCH (09:07)
[2023-03-31 10:14] VITALS: TEMP 97
--- NOTE | 2023-03-31 13:04 | P.PN ---
Subjective Progress Note Date: 03/31/23 History of present illness: This is a 68 year old female with prior history of acute SD in 2014 status post coronary angiography revealed normal left main, diffuse disease in the LAD with a 50% stenosis and a large diagonal branch, nondominant left circumflex with for abuse marginal branches and a 99% stenosis at the takeoff of the second obtuse marginal branch followed by another 95% stenosis beyond that initial stenosis. The right coronary artery is a large dominant vessel with a 60% stenosis in the midsegment. LV gram revealed anterolateral hypokinesis with ejection fraction was mildly reduced at about 50%. No gradient across the aortic valve LVEDP 26 mmHg followed by successful stenting of proximal and mid left circumflex. Patient subsequently underwent a three-vessel CABG and mitral valve repair at [facility] 2014. She also has history of tobacco use and depende nce, hypertension, hyperlipidemia. Patient presented to the hospital with complaints of left-sided neck pain that started from her ear down her neck into her collarbone the front and the back area. She denies having any problems with her neck in the past. She was sitting at rest at the onset of this. She denies having any chest pain or discomfort. She states she did have a severe eye infection a week before and initially thought that the infection was going from her eye into her ear. She denies having any shortness of breath, no sweats no lightheadedness or dizziness, no palpitations or fluttering feeling in her chest. She denies that it feels the same as when she had her stent done to her heart in 2014. She does have some pain in her left arm which occurs when she lifts the arm in the anterior position. Patient is seen today in the emergency center waiting for a bed on the cardiac stepdown unit. EKG sinus rhythm with T-wave inversions Chest x-ray: Clinical correlation for volume overload. Streaky atelectasis versus scarring right midlung. CBC is unremarkable. Initial WBC 12.5. Electrolytes are normal, kidney function is normal, liver function test is normal. ProBNP 536. Troponin negative 3. Home cardiac medications: Aspirin 81 mg daily, Lasix 75 mg daily, Lopressor 25 mg twice daily, lovastatin 5 mg daily Cardiac catheterization as above in 2013 SYED 2013: Severe mitral regurgitation and ruptured chordae tendon and partial flailing of the posterior mitral leaflet. Left atrial enlargement. No evidence of PFO. No clot in the left ventricle appendage. 03/31 Reviewed previous EKGs from 2013. No significant change. Patient continues to not have any chest pain. She does have the neck pain continued and is using lidocaine patch. Heart rate is in the 60s, blood pressure 165/70, telemetry sinus rhythm. Physical examination: Gen: This is a 68 year old female. She is resting in bed and appears to be comfortable and in no acute distress. VS: reviewed HEENT: Head is atraumatic, normocephalic. Pupils equal, round. Sclerae is ani cteric. NECK: Supple. No JVD. . LUNGS: Clear to auscultation. No wheezes or rhonchi. No intercostal retractions. HEART: Regular rate and rhythm. Systolic murmur. ABDOMEN: Soft No tenderness. EXTREMITIES: No pedal edema. No calf tenderness. NEUROLOGICAL: Patient is awake, alert and oriented x3. Assessment: T-wave inversions Left neck pain History of coronary artery disease status post stenting of the proximal and mid circumflex, history of three-vessel CABG and mitral valve replacement Hypertension Hyperlipidemia Remote history of tobacco use Plan: Continue patient's home cardiac medications Patient is cleared for discharge from cardiology and may follow up with Dr. Quintana in the office in one to 2 weeks. Nurse practitioner note has been reviewed, I agree with documented findings and plan of care. Patient was seen and examined. Objective - Vital Signs Vital signs: Vital Signs Temp 98.5 F 03/31/23 04:00 Pulse 65 03/31/23 04:00 Resp 14 03/31/23 04:00 BP 145/80 03/31/23 04:00 Pulse Ox 94 L 03/31/23 04:00 FiO2 Intake & Output 03/30/23 03/31/23 03/31/23 18:59 06:59 18:59 Intake Total 540 Balance 540 Weight 111.13 kg Intake: Oral 540 Other: # Voids 1 - Labs CBC & Chem 7: 03/30/23 06:53 03/31/23 07:10 Labs: Abnormal Lab Results - Last 24 Hours (Table) 03/31/23 Range/Units 07:10 BUN 23 H (7-17) mg/dL Glucose 105 H (74-99) mg/dL
[2023-03-31 13:21] VITALS: BP 166/79; PULSE 56; RESP 16
--- NOTE | 2023-03-31 15:00 | XR ---
EXAMINATION TYPE: XR shoulder complete LT DATE OF EXAM: 03/31/2023 12:46 PM INDICATION: Patient age:Female; 68 years old; Reason for study: pain; COMPARISON: None TECHNIQUE: The left shoulder was examined in AP, internally rotated and scapular Y projections. FINDINGS: No evidence of acute osseous pathology, joint dislocation, or soft tissue swelling. The remaining por tions of the visualized chest are unremarkable. Sternotomy wires are present. IMPRESSION: No acute osseous pathology.
== END 2023-03-31 16:45 | disposition home or self-care (01) ==
LOC: EC 19:06 → 3SCARD 22:12
PROVIDERS: ADMIT Internal Medicine; ATTEND Internal Medicine
DX: S16.1XXA Strain of muscle, fascia and tendon at neck level, initial encounter (principal); R07.9 Chest pain, unspecified; I10 Essential (primary) hypertension; E78.5 Hyperlipidemia, unspecified; I25.2 Old myocardial infarction; L40.9 Psoriasis, unspecified; I25.10 Atherosclerotic heart disease of native coronary artery without angina pectoris; R01.1 Cardiac murmur, unspecified; Z95.1 Presence of aortocoronary bypass graft; Z79.82 Long term (current) use of aspirin; Z79.899 Other long term (current) drug therapy; Z79.02 Long term (current) use of antithrombotics/antiplatelets; Z95.5 Presence of coronary angioplasty implant and graft; Z62.821 Parent-adopted child conflict; Z87.891 Personal history of nicotine dependence; X58.XXXA Exposure to other specified factors, initial encounter
CPT/HCPCS: 96372 ×3; 96376 ×2; 96374; 99285; 36415; 93005; 83880; 80053; 80048 ×2; 84484 ×2; 85025 ×2; 85610; 85730; 73030; 71046; G0378 ×3; J1885 ×3; J1644 ×3